=== PATIENT | male | born 1945 | race Caucasian/White ===

== ENCOUNTER 2020-05-19 08:21 | Observation (INO) | payer MEDICARE, OTHER, SELFPAY ==
[2020-05-19] VITALS (8 sets, daily range): BP systolic 104–143; BP diastolic 46–80; PULSE 76–98; RESP 14–20; TEMP 36.4–36.8; O2SAT 94–100; BMI 27.8
--- NOTE | ~2020-05-19 | CT_ITS ---
EXAMINATION: CT chest abdomen pelvis wo con DATE: 05/19/2020 14:52 INDICATION: Shortness of breath. Severe epigastric pain. Suprapubic pain. TECHNIQUE: Computed tomography (CT) of the chest, abdomen, and pelvis was performed without intraveno us contrast. Automated exposure control and iterative reconstruction technique were employed. The dos e-length product was 1092.34 mGy-cm. COMPARISON: CT studies dated 01/23/2014 and 02/05/2016 FINDINGS: CHEST CT: Calcified nodules in the right upper lobe and calcified right hilar lymph nodes consistent with old g ranulomatous disease. There is an 8 mm left upper lobe nodule with peripheral punctate calcification. Mild linear discoid atelectasis/scarring in the bilateral lower lobes. No pneumonia, pulmonary edema , pleural effusion or pneumothorax. Heart size is normal. Atherosclerotic coronary artery calcific ca lcification. No pericardial effusion. Fusiform ascending thoracic aortic aneurysm which measures up t o 4.8 cm in maximal diameter. No pathologically enlarged thoracic lymphadenopathy. Moderate thoracic spondylosis with bridging osteophytes at multiple levels consistent with diffuse idiopathic skeletal hyperostosis (DISH). ABDOMEN/PELVIS CT: Small calcified gallstone at the neck of the otherwise normal-appearing gallbladder. Liver and pancre as are normal. Unchanged small bilateral low-attenuation adrenal adenomas. A few scattered splenic ca lcifications consistent with old granulomatous disease. Likely age-related mild bilateral renal atrop hy. Bilateral renal cysts the largest on the left measuring 5.2 cm. A few atherosclerotic calcific a cyst at the bilateral renal mauro. No urolithiasis or hydronephrosis. Normal appendix. Moderate to lar ge amount of stool scattered throughout the colon. No abnormal bowel wall thickening or obstruction. Bladder appears normal although portions of the bladder as well as the prostate are obscured by dense metallic streak artifact from bilateral total hip arthroplasties. There is calcified atherosclerosis of the aorta and many of the other arteries. No free intraperitoneal gas or fluid. No pathologically enlarged abdominal or pelvic lymphadenopathy. Severe lumbar spondylosis. Interval decrease in size o f a multilobulated fluid collection tracking within the left iliopsoas muscle likely either a ganglio n cyst or iliopsoas bursa which results in a large chronic erosion along the anterior margin of the l eft acetabulum. IMPRESSION: 1. No acute intrathoracic, abdominal or pelvic process. 2. 8 mm indeterminate left upper lobe nodule. Recommend 6-12 month follow-up low-dose noncontrast sandra st CT. 3. 4.8 cm ascending thoracic aortic aneurysm. 4. Cholelithiasis. Reviewed, dictated and finalized at location A. IMPRESSION: 1. No acute intrathoracic, abdominal or pelvic process. 2. 8 mm indeterminate left upper lobe nodule. Recommend 6-12 month follow-up lo w-dose noncontrast chest CT. 3. 4.8 cm ascending thoracic aortic aneurysm. 4. Cholelithiasis.
--- NOTE | ~2020-05-19 | XR_ITS ---
EXAMINATION: XR chest 1V portable INDICATION: Chest pain TECHNIQUE: Portable AP chest at 0858 hours COMPARISON: 05/07/2018 FINDINGS: The lungs are free of acute opacities. There is no pleural effusion or pneumothorax. A calc ified nodule of the right upper lobe is consistent with old granulomatous disease. The cardiomediasti nal silhouette is normal. IMPRESSION: 1. No acute cardiopulmonary abnormality. Reviewed, dictated and finalized at location A.
--- NOTE | 2020-05-19 08:27 | ECG_ITS ---
Measurements Intervals [place] Rate: 100 P: 47 HI: 177 QRS: -44 QRSD: 86 T: 27 QT: 343 QTc: 444 Interpretive Statements SINUS TACHYCARDIA VENTRICULAR PREMATURE COMPLEXES DELAYED PRECORDIAL R/S TRANSITION LOW QRS VOLTAGE IN LIMB LEADS BASELINE ARTIFACT- I, II, III, AVR, AVL, AVF, V2 ABNORMAL ECG Electronically Signed On 05-21-2020 7:04:32 CDT by Geoffrey Sol D.O.
--- NOTE | 2020-05-19 08:39 | ED.CHESTPAIN ---
HPI - Chest Pain General Chief Complaint: Chest Pain Stated Complaint: Chest pain sob Source: patient Mode of arrival: ambulatory History of Present Illness HPI narrative: Sohail (goes by Fabiana) is a 74M with a PMH of COPD, HTN, OA and presented to the ED with CP. He has had CP on and off for months. He was feeding his goat this morning when he started to have squeezing chest pain that was worse with activity. It is accompanied by nausea, cold sweats, lightheadedness and SOB. No syncope or vomiting. He also reports some abdominal pain. Related Data Home Medications Medication Instructions Recorded Confirmed albuterol sulfate 2.5 mg CONTINUOUS NEBULIZATION PRN 05/19/20 05/19/20 PRN amitriptyline 25 mg PO DAILY 05/19/20 05/19/20 cyclobenzaprine 10 mg PO BID 05/19/20 05/19/20 hydrocodone-acetaminophen 1 tablet PO PRN PRN 05/19/20 05/19/20 lisinopril-hydrochlorothiazide 1 tablet PO DAILY 05/19/20 05/19/20 montelukast 10 mg PO DAILY 05/19/20 05/19/20 omeprazole 20 mg PO DAILY 05/19/20 05/19/20 Allergies Allergy/AdvReac Type Severity Reaction Status Date / Time Iodine and Iodide Containing Allergy Unknown Verified 05/19/20 09:25 Produc Review of Systems Constitutional: Constitutional: Reports chills and Reports fatigue Eyes: Eyes: Reports no additional eye complaints ENT: Reports system reviewed and no additional complaints, except as documented Cardiovascular: Cardiovascular: Reports as per HPI Respiratory: Respiratory: Reports as per HPI Gastrointestinal: Gastrointestinal: Reports abdominal pain, Denies constipation, Denies diarrhea, Reports nausea and Denies vomiting Genitourinary: Genitourinary: Reports no additional male genitourinary complaints Musculoskeletal: Musculoskeletal: Reports arthralgias Integumentary/Breasts: Skin/Breast: Reports system reviewed and no additional complaints, except as docu Neurologic: Reports system reviewed and no additional complaints, except as documented Psychiatric: Psychiatric: Reports no additional psychiatric complaints Endocrine: Endocrine: Reports no additional endocrine complaints Hematologic/Lymphatic: Hematologic/Lymphatic: Reports no additional hematologic/lymphatic complaints Allergic/Immunologic: Allergic/Immunologic: Reports no additional allergic/immunologic complaints Exam Const: General: alert Orientation/consciousness: patient oriented x3 Limitations: No altered mental status Other: Mild distress HENMT: Head: normal to inspection Other: moist mucous membranes Eyes: Conjunctivae: conjunctivae normal Pupils: Equal, round and reactive pupils present Neck: Neck: normal visual inspection Chest: Chest palpation & inspection: normal inspection of the chest Resp: Other: mildly increased WOB but still speaks in complete sentences. Cardio: Rate: tachycardic Rhythm: regular rhythm Heart sounds: no murmurs GI: Auscultation: normal bowel sounds Other: No TTP Skin: Other: Skin was wet an clammy Neuro: General: patient oriented x3 and moves all extremities Extrem: General: normal to inspection Psych: Mental Status: mental status grossly normal Course Course Emergency Course: Fabiana was seen and evaluated. Ordered labs, CXR and EKG. He was given aspirin and nitroglycerin. EKG showed sinus tachycardia with a rate of 100, slight LAD, and no ST elevation/depression EXAMINATION: XR chest 1V portable INDICATION: Chest pain TECHNIQUE: Portable AP chest at 0858 hours COMPARISON: 05/07/2018 FINDINGS: The lungs are free of acute opacities. There is no pleural effusion or pneumothorax. A calcified nodule of the right upper lobe is consistent with old granulomatous disease. The cardiomediastinal silhouette is normal. IMPRESSION: 1. No acute cardiopulmonary abnormality. While his initial troponin and EKG were unremarkable he is still at high risk of ACS so will admit to observation and trend troponins/ekgs. Vital Signs Vital signs: V
[2020-05-19] MEDS: ASPIRIN 81 MG CHEWABLE TABLET 324 MG PO (08:44)
[2020-05-19] MEDS: NITROGLYCERIN SL 0.4 MG TABLET SUBLINGUAL (08:46)
[2020-05-19 08:51] LABS: Basophils Absolute Auto 0.05 K/mm3 (0.00-0.10); Basophils Percent Auto 0.5 % (0.0-1.0); Eosinophils Absolute Auto 0.18 K/mm3 (0.02-0.50); Eosinophils Percent Auto 1.7 % (1.0-6.0); Hematocrit 43.6 % (37.0-46.0); Immature Granulocyte Absolute 0.07 K/mm3 (0.00-0.00); Immature Granulocyte Percent A 0.6 % (0.0-0.0); Lymphocytes Absolute Auto 1.83 K/mm3 (1.10-4.50); Lymphocytes Percent Auto 16.9 % (18.0-42.0); Mean Corpuscular HGB Conc 32.1 g/dL (32.0-36.0); Mean Corpuscular Hemoglobin 27.3 pg (27.0-31.0); Mean Corpuscular Volume 85.2 fL (78.0-102.0); Monocytes Absolute Auto 0.78 K/mm3 (0.10-0.90); Monocytes Percent Auto 7.2 % (2.0-11.0); Neutrophils Absolute Auto 7.9 K/mm3 (1.7-7.2); Neutrophils Percent Auto 73.1 % (50.0-70.0); Platelet Count Result 336 K/mm3 (150-420); Red Blood Count 5.12 M/mm3 (4.70-6.10); Red Cell Distribution Width 13.3 % (11.6-14.4)
[2020-05-19 08:58] LABS: White Blood Count 9.7 K/mm3 (4.8-10.8)
[2020-05-19 09:15] LABS: Alanine Aminotransferase 14 U/L (16-63); Albumin Level 3.9 g/dL (3.4-5.0); Alkaline Phosphatase 74 U/L (46-116); Anion Gap 10 mmol/L (8-16); Aspartate Amino Transferase 18 U/L (15-37); Bilirubin,Total 0.7 mg/dL (0.00-1.00); Blood Urea Nitrogen 25 mg/dL (7-18); Calcium 9.7 mg/dL (8.5-10.1); Carbon Dioxide 27 mmol/L (21-32); Chloride 98 mmol/L (98-108); Estimated CRCL calculation 38 ml/min; Estimated Glomerular Filt Rate 42; Glucose 100 mg/dL (70-99); Osmolality Calculated 284 mOsm/kg (285-295); Potassium 4.4 mmol/L (3.5-5.1); Sodium 135 mmol/L (136-145); Total Protein 8.1 g/dL (6.4-8.2)
[2020-05-19 09:16] LABS: BNP 22.7 pg/mL (0-100); Troponin I < 0.02 ng/mL (0.00-0.056)
[2020-05-19 09:18] LABS: Prothrombin Time 10.4 Seconds (9.64-11.0)
--- NOTE | 2020-05-19 09:34 | PC.NURSE ---
ERP spoke to pt. and , decision and POC to admit for 23 hr. obs.
--- NOTE | 2020-05-19 10:20 | PC.NURSE ---
PT TO ROOM 208B PER WC WITH SPOUSE. A&OX3. VSS. PT STATES HE HAS HAD A DULL MIDSTERNAL PRESSURE WORSENING THIS AM AFTER FEEDING HIS ANIMALS ON THE FARM THIS AM. PT COMPLAINS OF GENERALIZED BODY ACHES THIS AM BUT DENIES CP OR SOB AT THIS TIME. ORIENTED TO ROOM. CALL M[place]ACA IN REACH. REMINDED TO CALL WITH NEEDS.
--- NOTE | 2020-05-19 11:22 | PM.IMHP ---
H&P: HPI History of Present Illness Date/Time: 05/19/20 11:22 <Carolyn Mercado, CABLE ARMORER - Last Filed: 05/19/20 13:06> Chief complaint: Chest pain sob <Carolyn Mercado, CABLE ARMORER - Last Filed: 05/19/20 13:06> Narrative: Sohail Lake is a 74 year old male Admitted today due to chest pain and shortness of breath at home. He described it as a squeezing chest pressure located substernal epigastric region that occurred when he was outside feeding his goat this morning. It seemed to get worse with more activity. He denies any history of bleeding ulcers or peptic ulcer disease. He denies ever vomiting blood. He did acknowledge that his alcoholism was significant any had a lot of bleeding rectally in the past when he was an active drinker, but none noted since quitting. He denies having a colonoscopy and states he never well, states that he is too afraid of what they will find. He denies seeing blood in his stools at this time. He denies having any history of a heart attack and does not currently see a chief green officer. He has been complaining of this sort of chest pain and cold sweats on and off for 2 months. He does feel like it was anxiety and has discussed it with other providers. When he presented to the ED this morning he was diaphoretic, short of breath, lightheaded, and nauseated. He was given aspirin and nitroglycerin in the ED. Per the ED physician Dr. Payton, his EKG in the ED showed sinus tachycardia with a rate of 100, slight LAD, and no ST elevation/depression. CXR showed: lungs are free of acute opacities. There is no pleural effusion or pneumothorax. A calcified nodule of the right upper lobe is consistent with old granulomatous disease. The cardiomediastinal silhouette is normal. IMPRESSION: 1. No acute cardiopulmonary abnormality. Troponin I < 0.02 in ED. No syncope or vomiting. He did state that he got in an argument with his this morning. He stated that he had been yelling at her prior to this chest pressure. and that he was feeling bad about it afterwards. So he was thinking the chest pressure and pain was from this would fight with his and/or anxiety related. He goes by Fabiana to his . He reports some abdominal pain. He informed me that he has suprapubic pain significantly when he coughs. He also complained of having difficulty with urination and pain with urination. He states that sometimes he has urinary urgency, then when he gets to the bathroom he can't go with urinary hesitation. He also acknowledged that his abdomen felt a bit distended, not hard or firm, soft with positive bowel sounds throughout and no pain to palpation. He denies currently being constipated and states that he make sure he has a bowel movement every day or every other day. He stated that he understood the complications of taking narcotics and constipation; and stated that he would use an enema if he had a day without a bowel movement. He has a history of cigarette smoking but quit more than 10 or 15 years ago, he has a history of alcoholism but quit that many years ago as well, COPD, HTN, OA with significant and severe pain to his left knee and left hip. He does continue to use of vapor pen, but adamantly denies having any nicotine in the vaping solutions that he buys. He has had history of left hip and right hip replacement, but continues to have significant pain to his left hip. He stated that he takes Vicodin every day for 5 times a day to deal with the left knee and bilateral hip pain. He states that he is also tried taking meloxicam but did not do well on that. Once he gets his left leg comfortable, he then complained of the leg falling asleep with numbness and tingling and pain; although he denied any history of neuropathy and stated that he did not know what that was. He denies having ever tried Gabapentin or Neurontin for his leg or hip pain, numbness and tingling. Differential diagnoses include: ACS, Vapor related pneumonia, PE,
[2020-05-19 11:51] LABS: CRP 2.4 mg/dL (0.0-0.9)
[2020-05-19] MEDS: PANTOPRAZOLE 40 MG TABLET PO (12:01)
[2020-05-19 12:04] LABS: D Dimer 0.91 mg/L (0.19-0.50)
[2020-05-19 12:25] LABS: Magnesium 2.2 mg/dL (1.8-2.4); Phosphorus 3.2 mg/dL (2.6-4.7)
[2020-05-19 12:51] LABS: Erythrocyte Sedimentation Rate 28 mm/hr (0-20)
[2020-05-19] MEDS: ACETAMINOPHEN 500 MG TABLET 1000 MG PO ×2 (13:36→23:52)
--- NOTE | 2020-05-19 13:47 | PC.NURSE ---
pt has chronic pain in hips, dull ache mid sternum reported, sched tylenol given, pt resting in bed, aware of need for urine/stool sample
[2020-05-19 14:17] LABS: Creatine Kinase 43 U/L (39-308)
[2020-05-19 14:23] LABS: Troponin I < 0.02 ng/mL (0.00-0.056)
--- NOTE | 2020-05-19 15:31 | PC.NURSE ---
dr aguilar montanez about nightly melatonin, dr to add melatonin and trazadone for hs to help with insomnia
[2020-05-19] MEDS: CYCLOBENZAPRINE HCL 10 MG TABLET PO (16:49)
--- NOTE | 2020-05-19 17:44 | PCDIET ---
pt denies any chest pain at this time, no other complaints, call light in reach
[2020-05-19 18:33] LABS: Add Urine Microscopic? YES; Appearance Urine Clear (Clear); Bilirubin Urine Negative (Negative); Blood Urine Negative (Negative); Color Urine Yellow (Yellow); Glucose Urine UA Negative (Negative); Ketones Urine 1+ (Negative); Leukocyte Esterase Ur Negative (Negative); Nitrate Urine Negative (Negative); Protein Urine Negative (Negative); Specific Grav Ur 1.015 (1.010-1.020); Urobilinogen Urine 0.2 mg/dL (0.2-1.0)
[2020-05-19 18:49] LABS: Occult Blood Negative (Negative)
[2020-05-19 18:55] LABS: Bacteria Urine None seen /hpf; RBC Urine None seen /hpf (0-2); Squamous Epithelial Cell Urine None seen /hpf (Few); WBC Urine None seen /hpf (0-3)
[2020-05-19 18:56] LABS: Mucus Urine None seen /lpf
[2020-05-19 20:23] LABS: Troponin I < 0.02 ng/mL (0.00-0.056)
[2020-05-19] MEDS: traZODone HCL 50 MG TABLET PO (21:18)
[2020-05-19] MEDS: MELATONIN 5 MG TABLET PO (21:18)
[2020-05-20] VITALS: BP 97/47; PULSE 66; PULSE 80; RESP 12; TEMP 36.4; O2SAT 96
[2020-05-20 03:58] VITALS: BP 107/60; PULSE 70; PULSE 78; RESP 12; TEMP 36.8; O2SAT 95
[2020-05-20 06:06] LABS: Basophils Absolute Auto 0.07 K/mm3 (0.00-0.10); Basophils Percent Auto 0.7 % (0.0-1.0); Eosinophils Absolute Auto 0.33 K/mm3 (0.02-0.50); Eosinophils Percent Auto 3.4 % (1.0-6.0); Hematocrit 38.8 % (37.0-46.0); Hemoglobin 12.8 g/dL (12.4-15.3); Immature Granulocyte Absolute 0.04 K/mm3 (0.00-0.00); Immature Granulocyte Percent A 0.4 % (0.0-0.0); Lymphocytes Absolute Auto 2.26 K/mm3 (1.10-4.50); Lymphocytes Percent Auto 23.3 % (18.0-42.0); Mean Corpuscular Hemoglobin 27.5 pg (27.0-31.0); Mean Corpuscular Volume 83.3 fL (78.0-102.0); Mean Platelet Volume 8.7 fl (8.7-11.0); Monocytes Absolute Auto 0.84 K/mm3 (0.10-0.90); Monocytes Percent Auto 8.6 % (2.0-11.0); Neutrophils Absolute Auto 6.2 K/mm3 (1.7-7.2); Neutrophils Percent Auto 63.6 % (50.0-70.0); Platelet Count Result 298 K/mm3 (150-420); Red Blood Count 4.66 M/mm3 (4.70-6.10); Red Cell Distribution Width 13.2 % (11.6-14.4); White Blood Count 9.7 K/mm3 (4.8-10.8)
[2020-05-20 06:22] LABS: Alanine Aminotransferase 12 U/L (16-63); Albumin Level 3.5 g/dL (3.4-5.0); Alkaline Phosphatase 63 U/L (46-116); Anion Gap 8 mmol/L (8-16); Aspartate Amino Transferase 16 U/L (15-37); Bilirubin,Total 0.6 mg/dL (0.00-1.00); Blood Urea Nitrogen 25 mg/dL (7-18); Carbon Dioxide 28 mmol/L (21-32); Chloride 100 mmol/L (98-108); Estimated CRCL calculation 42 ml/min; Estimated Glomerular Filt Rate 48; Glucose 92 mg/dL (70-99); Osmolality Calculated 286 mOsm/kg (285-295); Potassium 4.3 mmol/L (3.5-5.1); Sodium 136 mmol/L (136-145); Total Protein 7.2 g/dL (6.4-8.2)
[2020-05-20 06:30] LABS: Creatine Kinase 52 U/L (39-308)
[2020-05-20 06:31] LABS: Troponin I < 0.02 ng/mL (0.00-0.056)
--- NOTE | 2020-05-20 07:45 | PC.NURSE ---
MANAGER TRANSPLANT VISITS WITH PATIENT FOR 25 MINUTES DISCUSSING DISCHARGE PLAN OF CARE.
[2020-05-20 08:00] VITALS: BP 125/74; PULSE 99; RESP 20; TEMP 36.4; O2SAT 97
--- NOTE | 2020-05-20 08:25 | PM.DS ---
DS: Admitting Diagnosis Admitting Diagnosis Admitting Diagnosis: Chest pain sob DS: Discharge Diagnosis Discharge Diagnosis (1) Osteoarthritis: Code(s): M19.90 - Unspecified osteoarthritis, unspecified site Status: Acute Assessment and Plan: CHRONIC. PT evaluation for tolerance to activity pain control out of bed with meals ice and Angel wrap as needed for comfort continue the daily amitriptyline and b.i.d. cyclobenzaprine and p.r.n. [place] added lidocaine patches x3 may benefit from steroid injections and/or Neurontin as well as follow-up with a supervisor painting shipyard and Orthopedic Surgeon. (2) Chronic suprapubic pain: Code(s): R10.2 - Pelvic and perineal pain; G89.29 - Other chronic pain Status: Acute Assessment and Plan: IMPROVED. Differential diagnoses include UTI, prostatitis, hernia, diverticulosis. Patient stated the pain and urgency comes with deep coughing and palpation of the suprapubic area. patient implied through his history that the primary care provider had worked this up prior to this admission his urinalysis in March was clear his PSA level in March was also normal UA on 05/19 without s/s of UTI Urine culture on 05/[address] abd pelvis showed no acute urinary concerns. patient stated he was taking cranberry extract supplements at home, will continue ordered UA and urine culture again today to rule out UTI with his persistent pain and urinary s/s with his history of smoking and alcoholism he is at risk for urinary bladder cancer he may benefit from Flomax, Abdominal US, and should follow-up with his primary care provider and/or Urologist after this discharge, he may need a cystoscopy (3) Narcotic dependency, continuous: Code(s): F11.20 - Opioid dependence, uncomplicated Status: Acute Assessment and Plan: CHRONIC. increase nonnarcotic measures to control pain and anxiety patient will need to discuss starting Neurontin or gabapentin with his primary care provider after discharge continue amitriptyline ordered Angel wrap and ice packs as needed for comfort ordered scheduled Tylenol doses for better pain control as well as added lidocaine patches need to follow-up with primary care provider and/or supervisor painting shipyard and/or orthopedic specialty surgeon after this hospitalization (4) Chest pain: Code(s): R07.9 - Chest pain, unspecified Status: Acute Assessment and Plan: RESOLVED. Differential diagnoses include: ACS, Vapor related pneumonia, PE, OR, PUD, hiatal hernia, narcotic related gastroparesis, COPD/Asthma) exacerbation, Anxiety attack. Checking serial troponins including to full cardiac panels - all WNL. no elevations. continuous cardiac telemetry monitoring - no ectopy. EKG at admission reviewed chest x-ray and found no acute issues at this time checking D-dimer: mildly elevated unable to complete CT PE protocol as patient is SEVERELY allergic to IV contrast, unable to complete VQ Scan due to hospital restrictions at this time, discussed D-dimer level and patient s/s with Dr. Payton, ordered CT chest abdomen pelvis without contrast CT chest abdomen pelvis showed . No acute intrathoracic, abdominal or pelvic process. 8 mm indeterminate left upper lobe nodule. Recommend 6-12 month follow-up low-dose noncontrast chest CT. 4.8 cm ascending thoracic aortic aneurysm. Cholelithiasis. (discussed results with patient and he did then recall that [facility] past, and thought that it worsened after a chemical stress test). Patient agreed to follow-up with [facility]. He stated he used to see a advertising sales manager that would come down to [place]. He stated he would start doing that again or see them at the [facility]. Since today is Thursday, I have provided the patient with [facility] phone number as well as the advertising sales manager names and satellit
--- NOTE | 2020-05-20 08:45 | PC.NURSE ---
PT UP AT EDGE OF BED, DRESSED AND READY TO GO. IV REMOVED, TELE REMOVED. WAITING FOR SPOUSE. REMINDED TO CALL WITH NEEDS.
[2020-05-20] MEDS: MONTELUKAST SODIUM 10 MG TABLET PO (08:49)
[2020-05-20] MEDS: AMITRIPTYLINE HCL 25 MG TABLET PO (08:49)
[2020-05-20] MEDS: CYCLOBENZAPRINE HCL 10 MG TABLET PO (08:49)
[2020-05-20] MEDS: PANTOPRAZOLE 40 MG TABLET PO (08:49)
[2020-05-20] MEDS: hydroCHLOROthiazide 12.5 MG CAPSULE PO (08:49)
[2020-05-20] MEDS: LIDOCAINE 5% PATCH 3 PATCH TRANSDERM (08:50)
[2020-05-20] MEDS: guaiFENesin 12 HR 600 MG TABCR 1200 MG PO (08:50)
[2020-05-20] MEDS: ENOXAPARIN 40 MG/0.4 ML SYRINGE SUB-Q (08:50)
[2020-05-20] MEDS: lisinopriL 20 MG TABLET PO (08:51)
--- NOTE | 2020-05-20 10:30 | PC.NURSE ---
PT REMAINS UP AT EDGE OF BED WAITING FOR SPOUSE. HAS NO COMPLAINTS. REMINDED TO CALL WITH NEEDS.
== END 2020-05-20 07:56 | disposition home or self-care (01) ==
LOC: CHSED 09:18 → CHS2ND 09:46
PROVIDERS: Nurse Practitioner; Admitting Provider Family Medicine; Emergency Provider Family Medicine; PCP Internal Medicine; Visit Provider Family Medicine
DX: R07.9 Chest pain, unspecified (principal); R06.02 Shortness of breath; J44.9 Chronic obstructive pulmonary disease, unspecified; I10 Essential (primary) hypertension; R10.2 Pelvic and perineal pain; G89.29 Other chronic pain; K80.20 Calculus of gallbladder without cholecystitis without obstruction; M19.90 Unspecified osteoarthritis, unspecified site; F11.20 Opioid dependence, uncomplicated; F10.21 Alcohol dependence, in remission; Z96.643 Presence of artificial hip joint, bilateral; Z87.891 Personal history of nicotine dependence
CPT/HCPCS: 36415; 71045; 71250; 74176; 80053; 81001; 82550; 82553; 83735; 83880; 84100; 84484; 85025; 85380; 85610; 85652; 86140; 87086; 87088; 93005; 96372; 97161; 99284; 99285; A9270; G0378; J1650

== ENCOUNTER 2024-02-12 22:18 | Emergency (ER) | payer MEDICARE, SELFPAY ==
[2024-02-12] VITALS (7 sets, daily range): BP systolic 141–148; BP diastolic 65–69; PULSE 84–96; RESP 11–27; TEMP 36.4; O2SAT 98–100
--- NOTE | ~2024-02-12 | XR_ITS ---
EXAMINATION: XR chest 1V portable DATE: 02/12/2024 22:52 INDICATION: Shortness of breath. TECHNIQUE: A single frontal view of the chest was obtained. COMPARISON: Chest single view 05/19/2020, chest CT 11/22/2021 FINDINGS: A calcified right lung nodule is consistent with old granulomatous disease. There is mild a telectasis in the lower lung zones. No pleural effusion or pneumothorax. The heart size is normal. IMPRESSION: 1. Mild atelectasis in the lower lung zones. Reviewed, dictated and finalized at location E.
--- NOTE | 2024-02-12 22:26 | ED.SOB ---
HPI - SOB/Dyspnea General Chief Complaint: Shortness of Breath/Dyspnea Stated Complaint: SOB Time Seen by Provider: 02/12/24 22:26 Source: patient and family Mode of arrival: ambulatory Limitations: no limitations History of Present Illness HPI Narrative: 78-year-old male with a history of alcoholism, opiate dependence, ex-smoker, Anxiety presents to the ER with -- shortness of breath. The patient was ingesting his Vicodin when he aspirated. Subsequently he had violent coughing spells along with shortness of breath. This happened around 5 hours ago. The patient is saturating 99% on room air with a respiratory rate of 26. -- Patient had a burning sensation behind his sternum. no chest pain no nausea/ vomiting Patient has bilateral hip replacements. His right prosthetic hip got dislocated Three months ago and subsequently replaced. He has ongoing right hip pain. MD elicited complaint: shortness of breath and cough Pertinent past history: COPD Onset (ago): hour(s) ( 5 hours ago) Timing: constant Severity: moderate Exacerbating factors: nothing Relieving factors: nothing Known history of: COPD Associated symptoms: denies other symptoms Treatment prior to arrival: none Related Data Home Medications Medication Instructions Recorded Confirmed amitriptyline 25 mg tablet 25 mg PO DAILY 05/19/20 02/12/24 montelukast 10 mg tablet 10 mg PO DAILY 05/19/20 02/12/24 omeprazole 20 mg capsule,delayed 20 mg PO DAILY 05/19/20 02/12/24 release Allergies Allergy/AdvReac Type Severity Reaction Status Date / Time Iodine and Iodide Containing Allergy Unknown Verified 05/19/20 09:25 Produc Review of Systems Review of Systems: All systems reviewed & are unremarkable except as noted in HPI and below Constitutional: Constitutional: Reports as per HPI and Reports no additional constitutional complaints Eyes: Eyes: Reports as per HPI and Reports no additional eye complaints ENT: Reports system reviewed and no additional complaints, except as documented and Reports as per HPI Cardiovascular: Cardiovascular: Reports as per HPI and Reports no additional cardiovascular complaints Respiratory: Respiratory: Reports as per HPI, Reports no additional respiratory complaints, Reports cough and Reports dyspnea Gastrointestinal: Gastrointestinal: Reports as per HPI and Reports no additional gastrointestinal complaints Genitourinary: Genitourinary: Reports no additional male genitourinary complaints and Reports as per HPI Musculoskeletal: Musculoskeletal: Reports no additional musculoskeletal complaints and Reports as per HPI Integumentary/Breasts: Skin/Breast: Reports system reviewed and no additional complaints, except as docu and Reports as per HPI Neurologic: Reports system reviewed and no additional complaints, except as documented and Reports as per HPI Psychiatric: Psychiatric: Reports no additional psychiatric complaints, Reports as per HPI and Reports anxiety Endocrine: Endocrine: Reports no additional endocrine complaints and Reports as per HPI Hematologic/Lymphatic: Hematologic/Lymphatic: Reports no additional hematologic/lymphatic complaints and Reports as per HPI Allergic/Immunologic: Allergic/Immunologic: Reports no additional allergic/immunologic complaints and Reports as per HPI PMF Past Medical History Medical History (Updated 02/13/24 @ 02:04 by Ramin Barrios MD) Alcoholism Cigarette smoker COPD (chronic obstructive pulmonary disease) Strangulated hernia of abdominal wall Surgical History Surgical History History of hernia repair Family History Family History Father Acute myocardial infarction Chronic obstructive pulmonary disease Mother Diabetes mellitus Social History Social History Smoking status: Former smoker Tob
--- NOTE | 2024-02-12 22:29 | PC.NURSE ---
patient wob labored. states he needs oxygen, will place on 1 liter nc. informed patient that his spo2 reading is at 100%. encouraged patient to slow breathing
--- NOTE | 2024-02-12 22:35 | PC.NURSE ---
patient states i feel like i am going to pass out . encouraged patient to slow breathing and to sit back on stretcher.
--- NOTE | 2024-02-12 22:37 | PC.NURSE ---
Dr Barrios at the bedside
--- NOTE | 2024-02-12 22:40 | ECG_ITS ---
SEE SCANNED COPY FOR CONFIRMED REPORT MTDD
--- NOTE | 2024-02-12 22:44 | PC.NURSE ---
using the urinal
--- NOTE | 2024-02-12 22:45 | PC.NURSE ---
notified cardiopulmonary that ekg was needed.
--- NOTE | 2024-02-12 22:50 | PC.NURSE ---
cxr completed, ekg being completed at this time
[2024-02-12 23:05] LABS: Basophils Absolute Auto 0.05 K/mm3 (0.00-0.10); Basophils Percent Auto 0.4 % (0.0-1.0); Eosinophils Absolute Auto 0.04 K/mm3 (0.02-0.50); Eosinophils Percent Auto 0.3 % (1.0-6.0); Hematocrit 36.8 % (37.0-46.0); Hemoglobin 12.2 g/dL (12.4-15.3); Immature Granulocyte Absolute 0.08 K/mm3 (0.00-0.00); Immature Granulocyte Percent A 0.7 % (0.0-0.0); Lymphocytes Absolute Auto 1.58 K/mm3 (1.10-4.50); Lymphocytes Percent Auto 13.6 % (18.0-42.0); Mean Corpuscular HGB Conc 33.2 g/dL (32-36); Mean Corpuscular Hemoglobin 29.3 pg (27.0-31.0); Mean Corpuscular Volume 88.5 fL (78.0-102.0); Mean Platelet Volume 8.5 fl (8.7-11.0); Monocytes Absolute Auto 0.83 K/mm3 (0.10-0.90); Monocytes Percent Auto 7.2 % (2.0-11.0); Neutrophils Absolute Auto 9.02 K/mm3 (1.70-7.20); Neutrophils Percent Auto 77.8 % (50.0-70.0); Platelet Count Result 290 K/mm3 (150-420); Red Blood Count 4.16 M/mm3 (4.70-6.10); Red Cell Distribution Width 13.3 % (11.6-14.4); White Blood Count 11.6 K/mm3 (4.8-10.8)
[2024-02-12 23:10] LABS: Appearance Urine Clear (Clear); Bilirubin Urine Negative (Negative); Blood Urine Negative (Negative); Color Urine Light Yellow (Yellow); Glucose Urine UA Negative (Negative); Ketones Urine Negative (Negative); Leukocyte Esterase Ur Negative LEU/UL (Negative); Nitrate Urine Negative (Negative); Protein Urine Negative (Negative)
[2024-02-12 23:11] LABS: Add Urine Microscopic? NO
--- NOTE | 2024-02-12 23:11 | PC.NURSE ---
patient talking with family member while resting on stretcher. currently, wob is non labored. call light in reach
--- NOTE | 2024-02-12 23:28 | PC.NURSE ---
daughter came out to the desk stating he is still complaining of chest pain . ER provider notified
[2024-02-12] MEDS: LORazepam (*CRX) 0.5 MG TABLET PO (23:33)
--- NOTE | 2024-02-12 23:35 | PC.NURSE ---
patient is anxious in the room. im worried my hip is gonna pop out. i don't want to move and lay back on the stretcher
--- NOTE | 2024-02-12 23:44 | PC.NURSE ---
patient doesnt want staff to get blood pressure on him. daughter at the bedside
--- NOTE | 2024-02-13 00:05 | PC.NURSE ---
patient sitting up on the side of stretcher. family member in front of him. patient states i am ready to go home . informed patient that blood work was not completed as of this time. patient verbalized understanding
--- NOTE | 2024-02-13 00:09 | PC.NURSE ---
patient reports that his chest pain is starting to go away
--- NOTE | 2024-02-13 00:54 | PC.NURSE ---
patient is sitting up on stretcher. lab work pending. denies any needs at this time. family member at the bedside.
--- NOTE | 2024-02-13 01:12 | PC.NURSE ---
patient daughter at the desk. wanting to know how much longer before blood work will be back. has asked about going home. informed daughter that blood work will determine next steps in care. daughter was informed about ama form and risks and benefits regarding going home without final lab work. daughter went back to room to discuss with patient
--- NOTE | 2024-02-13 01:20 | PC.NURSE ---
daughter and patient were notified that blood work had to be taken to [facility] for processing. patient is frustrated and wants to go home but is currently willing to stay and wait for results.
[2024-02-13 01:43] LABS: Alanine Aminotransferase 12 U/L (6-50); Albumin Level 4.3 g/dL (3.5-5.1); Alkaline Phosphatase 90 U/L (38-126); Anion Gap 8 mmol/L (4-12); Aspartate Amino Transferase 35 U/L (17-59); Bilirubin,Total 0.5 mg/dL (0.2-1.3); Blood Urea Nitrogen 14 mg/dL (9-20); Calcium 9.2 mg/dL (8.4-10.2); Carbon Dioxide 24 mmol/L (22-30); Chloride 100 mmol/L (98-107); Estimated CRCL calculation 56 ml/min; Estimated Glomerular Filt Rate > 60; Glucose 138 mg/dL (65-110); Osmolality Calculated 276 mOsm/kg (285-295); Sodium 132 mmol/L (137-145)
[2024-02-13 01:44] LABS: Lactic Acid Reflex 1.7 mmol/L (0.7-2.0)
[2024-02-13 01:55] LABS: NT Pro B Type Natriuretic Pept 223 pg/mL (19.9-100); Troponin I < 0.012 ng/mL (0.000-0.034)
[2024-02-13] MEDS: AMOXICILLIN/CLAVULANATE K 875-125 MG TAB 1 TABLET PO (02:15)
[2024-02-13 02:20] VITALS: BP 141/71; PULSE 85; RESP 20; O2SAT 95
== END 2024-02-13 02:20 | disposition home or self-care (01) ==
PROVIDERS: Emergency Provider Internal Medicine Critical Care Medicine; PCP Internal Medicine
DX: T17.908A Unspecified foreign body in respiratory tract, part unspecified causing other injury, initial encounter (principal); R06.02 Shortness of breath; R07.9 Chest pain, unspecified; W44.9XXA Unspecified foreign body entering into or through a natural orifice, initial encounter; J44.9 Chronic obstructive pulmonary disease, unspecified; Z96.643 Presence of artificial hip joint, bilateral; Z87.891 Personal history of nicotine dependence; F10.21 Alcohol dependence, in remission; Z79.51 Long term (current) use of inhaled steroids
CPT/HCPCS: 36415; 71045; 80053; 81003; 83605; 83880; 84484; 85025; 93005; 99284; A9270

== ENCOUNTER 2024-07-25 20:42 | Observation (INO) | payer MEDICARE, SELFPAY ==
[2024-07-25] VITALS (14 sets, daily range): BP systolic 97–128; BP diastolic 56–97; PULSE 84–98; RESP 20; TEMP 36.9; O2SAT 93–98; BMI 23.6
--- NOTE | ~2024-07-25 | CT_ITS ---
EXAMINATION: CT shoulder RT wo con DATE: 07/26/2024 12:19 INDICATION: Right shoulder pain and swelling. TECHNIQUE: Computed tomography (CT) of the right shoulder was performed without intravenous contrast. Automated exposure control and iterative reconstruction technique were employed. The dose-length pro duct was 509.73 mGy-cm. COMPARISON: None FINDINGS: There is mild emphysema. A calcified right lung nodule and calcified right hilar lymph node s are consistent with old granulomatous disease. There are airspace opacities in right lower lobe, co nsistent with atelectasis versus pneumonia. There is mild atelectasis in right middle lobe and right upper lobe. There is a comminuted fracture of proximal right humerus including displaced fracture fra gments of the surgical neck and greater tuberosity. The main distal fracture fragment demonstrates on e shaft width anterior displacement, shortening, and severe rotation and angulation. There is mild os teoarthritis of glenohumeral joint and acromioclavicular joint. IMPRESSION: 1. Comminuted three-part fracture of proximal right humerus. 2. Mild polyarticular osteoarthritis. 3. Airspace opacities in right lung lower lobe, consistent with atelectasis versus pneumonia. Reviewed, dictated and finalized at location B. IMPRESSION: 1. Comminuted three-part fracture of proximal right humerus. 2. Mild polyarticular osteoarthritis. 3. Airspace opacities in right lung lower lobe, consistent with atelectasis gustavo neo pneumonia.
--- NOTE | ~2024-07-25 | XR_ITS ---
XR hip LT 2V w AP pelvis Ordering provider: Nicola Mcdaniels MD History: . FALL . Comparison: May 10, 2018 FINDINGS: BONES: No acute fracture or dislocation. HIP JOINT SPACES: Left hip arthroplasty. SACROILIAC JOINT SPACES/LUMBAR SPINE: The sacroiliac joint spaces are normal. Mild degenerative wolf es of the visualized lower lumbar spine. PUBIC SYMPHYSIS: Normal. SOFT TISSUES: Vascular atherosclerotic changes. IMPRESSION: No acute osseous abnormality pelvis and left hip. Left hip arthroplasty. Reviewed, dictated and finalized at location A.
--- NOTE | ~2024-07-25 | CT_ITS ---
EXAMINATION: CT chest abdomen pelvis wo con DATE: 07/27/2024 09:54 INDICATION: Generalized abdominal pain, nausea and leukocytosis. TECHNIQUE: Computed tomography (CT) of the chest, abdomen, and pelvis was performed without intraveno us contrast. Automated exposure control and iterative reconstruction technique were employed. The dos e-length product was 1345.48 mGy-cm. COMPARISON: 05/19/2020 FINDINGS: CHEST CT: 4.3 x 3.1 cm mass with lobular margins and 1 cm satellite nodule at the superior segment of the lingu la suspicious for primary bronchogenic carcinoma. Calcified right upper lobe nodule along with calcif ied right hilar lymph nodes consistent with old granulomatous disease. There is mucous plugging at th e right bronchus intermedius and a few right lower lobar bronchi with consolidation in the posterior basilar right lower lobe consistent with pneumonia. Branching pattern of high attenuation within the region of consolidation suggests possible aspirated barium. Heart size is normal. Atherosclerotic cor onary artery calcific lesions. No pericardial effusion. No significant change in an ascending thoraci c aortic aneurysm measuring up to 4.8 cm in maximal diameter. No pathologically enlarged thoracic lym phadenopathy. Moderate thoracic spondylosis with prominent bridging osteophytes at multiple levels co nsistent with diffuse idiopathic skeletal hyperostosis (DISH). Incompletely visualized comminuted fra cture the proximal right humerus. ABDOMEN/PELVIS CT: Significant distention of the stomach which is filled with gas and fluid without evident obstructing lesion at the gastric pylorus. Calcified gallstone at the dependent aspect of the otherwise normal ga llbladder. Liver and pancreas are normal. Cervical spine Wo splenic calcifications consistent with ol d granulomatous disease. No interval change in small bilateral low-attenuation bilateral adrenal abraham omas, the larger on the left measuring 1.3 cm. Chronic bilateral renal cysts, the largest on the left measuring up to 5.4 cm. Large amount of stool scattered throughout the colon suggestive of constipat ion small bowel and appendix are normal. Bladder is normal. Moderate-sized fat-containing right ingui nal hernia. Bilateral total hip arthroplasties with prominent streak artifact which limits assessment of the surrounding bone and soft tissues. Increased lobular regions of soft tissue density about the left hip and extending into the left iliopsoas muscles. See separate left hip CT report from one day prior for further detail. Severe lumbar spondylosis. IMPRESSION: 1. 4.3 x 3.1 cm lingular mass concerning for primary bronchogenic carcinoma. The superior segmental b ronchus of the lingula terminates abruptly at the mass which would be amenable to bronchoscopic biops y. 2. Likely aspirated barium within multiple bronchi within a region of consolidation in the right lowe r lobe consistent with pneumonia. 3. 4.8 cm ascending thoracic aortic aneurysm. 4. Cholelithiasis. 5. Large amount of colonic stool suggestive of constipation. 6. Bilateral total hip arthroplasties with multiple lobular soft tissue densities about the left hip with differential including inflammatory pseudomass is, hematoma or abscesses in the appropriate clin ical setting. See separate left hip CT report from one day prior for further detail. Reviewed, dictated and finalized at location A. IMPRESSION: 1. 4.3 x 3.1 cm lingular mass concerning for primary bronchogenic carcinoma. Th e superior segmental bronchus of the lingula terminates abruptly at the mass wh ich would be amenable to bronchoscopic biopsy. 2. Likely aspirated barium within multiple bronchi within a region of consolida tion in the right lower lobe consistent with pneumonia. 3. 4.8 cm ascending thoracic aortic aneurysm. 4. Cholelithiasis. 5. Large amount of colonic stool suggestive of constipation. 6. Bilateral total hip arthroplasties with multiple lobular soft tissue densiti es about the left hip with differential including inflammatory pseudomass is, h ematoma or abscesses in the appropriate clinical setting. See separate left hip CT report from one day prior for further detail.
--- NOTE | ~2024-07-25 | CT_ITS ---
EXAMINATION: CT hip LT wo con DATE: 07/26/2024 12:19 INDICATION: Severe left hip pain TECHNIQUE: High resolution computed tomography (CT) of the left hip was performed without intravenous contrast. Additional sagittal and coronal reconstructions were performed. Automated exposure control and iterative reconstruction technique were employed. The dose-length product was 535.03 mGy-cm. COMPARISON: Radiographs dated 07/25/[address] dated 05/19/2020 FINDINGS: Again seen is a noncemented left total hip arthroplasty which remains well seated in near-anatomic al ignment with no fracture or periprosthetic lucency to suggest loosening or infection. Severe spondylo sis in the visualized lower lumbar spine including severe left-sided facet osteoarthritis at L3-L4 th rough L5-S1. Mild bilateral sacral erect osteoarthritis with anterior bridging osteophytes. Again see n is chronic erosion with sclerotic margins along the anterior left acetabulum which could be related to what appears to be chronic fluid filled left iliopsoas bursa evaluation of which is somewhat limi jhonny due to prominent metallic streak artifact surrounding the left hip hemiarthroplasty. There are pe ripheral calcifications associated with pseudomasses proximal abductor compartment superficial to the obturator ring, in the tissues deep to the obturator ring and along the medial aspect of the left ac etabulum as well as along the lateral and posterior margin of the left acetabulum. There are multiple small lobular regions of subtly increased density extending proximally along the left psoas muscle a lso most likely related to inflammatory pseudomass is although differential would include small hemat omas or abscesses in the appropriate clinical setting. Bladder and visualized portions of bowels are unremarkable moderate amount of stool in the rectum. No evident free fluid in the pelvis. No patholog ically enlarged pelvic or left inguinal lymphadenopathy. IMPRESSION: 1. Left total hip arthroplasty with no acute osseous abnormality. 2. Increased density and some peripheral calcification associated with multiple lobular likely inflam matory pseudomasses about the left hip including extending proximally along the left psoas muscle whi ch is progressed since the prior study. Differential would include hematoma or abscess in the appropr iate clinical setting. Lymph node assessment of the soft tissues in the vicinity of the left hip and proximal femur is somewhat limited due to prominent metallic streak artifact from the arthroplasty. Reviewed, dictated and finalized at location A. IMPRESSION: 1. Left total hip arthroplasty with no acute osseous abnormality. 2. Increased density and some peripheral calcification associated with multiple lobular likely inflammatory pseudomasses about the left hip including extendin g proximally along the left psoas muscle which is progressed since the prior st udy. Differential would include hematoma or abscess in the appropriate clinical setting. Lymph node assessment of the soft tissues in the vicinity of the left hip and proximal femur is somewhat limited due to prominent metallic streak ar tifact from the arthroplasty.
--- NOTE | 2024-07-25 20:49 | ED_ITS ---
HPI - General Adult General Chief complaint: Extremity Problem,Nontraumatic Stated complaint: Upper Extremity Problem Time Seen by Provider: 07/25/24 20:48 Source: patient, family and EMS Mode of arrival: EMS History of Present Illness HPI narrative: 78 YEARS OLD WHITE MALE CAME FROM HOME BY AMBULANCE COMPLAINING OF PAIN AT THE RIGHT SHOULDER AND LEFT HIP. PATIENT HAD A FALL 1 WEEK AGO, WENT TO [facility], [place], , COMPLAINING OF RIGHT SHOULDER AND LEFT HIP PAIN, X-RAY SHOWED A RIGHT SHOULDER FRACTURE, NO HIP FRACTURE. PATIENT ON ELIQUIS FOR ATRIAL FIBRILLATION, UNABLE TO MANAGE AND CONTROL HIS PAIN AT HOME, FAMILY UNABLE TO TAKE CARE OF HIM, CAME TO THE EMERGENCY ROOM FOR PAIN MANAGEMENT AND POSSIBLE REHAB PLACEMENT. Related Data Home Medications Medication Instructions Recorded Confirmed amitriptyline 25 mg tablet 25 mg PO DAILY 05/19/20 07/25/24 montelukast 10 mg tablet 10 mg PO DAILY 05/19/20 07/25/24 omeprazole 20 mg capsule,delayed 20 mg PO DAILY 05/19/20 07/25/24 release apixaban 5 mg tablet (Eliquis) 5 mg PO BID 07/25/24 07/25/24 Allergies Allergy/AdvReac Type Severity Reaction Status Date / Time Iodine and Iodide Containing Allergy Unknown Verified 05/19/20 09:25 Produc Review of Systems Review of Systems: All systems reviewed & are unremarkable except as noted in HPI and below PMFSH Past Medical History Medical History (Updated 07/25/24 @ 21:28 by Nicola Mcdaniels MD) Alcoholism Cigarette smoker COPD (chronic obstructive pulmonary disease) Strangulated hernia of abdominal wall Surgical History Surgical History History of hernia repair Family History Family History Father Acute myocardial infarction Chronic obstructive pulmonary disease Mother Diabetes mellitus Social History Social History Smoking status: Former smoker Tobacco type: e-cigarettes/vaping Second hand tobacco smoke exposure: No Alcohol intake: former Substance use: never Gender identity (if verbalized by the patient): Male Sexual Orientation (if Verbalized by the Patient): Straight or Heterosexual Spiritual care concerns: No Exam Narrative: GENERAL APPEARANCE: WELL-DEVELOPED, WELL-NOURISHED , HEARING IMPAIRMENT SKIN: NORMAL COLOR HEAD: NORMOCEPHALIC, NONTRAUMATIC EYES: CLEAR CONJUNCTIVA ENT: OROPHARYNX NORMAL, EARS NORMAL, NOSE NORMAL NECK: SUPPLE, NONTENDER CHEST AND RESPIRATORY: AIRWAY PATENT, NO RESPIRATORY DISTRESS, NO ACCESSORY MUSCLE USE HEART: REGULAR RATE/RHYTHM ABDOMEN: SOFT, NONTENDER, NO ORGANOMEGALY, QUIET BOWEL SOUNDS VASCULAR: NORMAL PERIPHERAL PULSES, NORMAL CAPILLARY REFILL. MUSCULOSKELETAL: RIGHT SHOULDER SHOWED DIFFUSE SWELLING, ECCHYMOSIS, HEMATOMA, SEVERE LIMITED RANGE OF MOTION, LEFT HIP EXAMINATION SHOWED SLIGHT DIFFUSE TENDERNESS LATERALLY, SLIGHT BRUISES, NO OBVIOUS DEFORMITY. SLIGHT LIMITED RANGE OF MOTION OF THE LEFT HIP. NEUROLOGIC: ALERT AND ORIENTED TO HIS NAME ONLY Course Vital Signs Vital signs: Vital Signs Temperature 36.9 C 07/25/24 20:49 Pulse Rate 98 07/25/24 20:49 Respiratory Rate 20 07/25/24 20:49 Blood Pressure 128/73 07/25/24 20:49 Pulse Oximetry 98 07/25/24 20:49 Oxygen Delivery Room Air 07/25/24 20:49 Temperature 36.9 C 07/25/24 20:49 Pulse Rate 88 07/25/24 21:52 Respiratory Rate 20 07/25/24 21:52 Blood Pressure 102/56 L 07/25/24 21:52 Pulse Oximetry 94 07/25/24 21:52 Oxygen Delivery Room Air 07/25/24 21:52 Medical Decision Making MDM Narrative Medical decision making narrative: PATIENT HAD A FALL 1 WEEK AGO, COMPLAINED OF RIGHT SHOULDER AND LEFT HIP PAIN, WENT TO [facility] [place], WORKUP SHOWED FRACTURE RIGHT HUMERUS. NO ACUTE ABNORMALITIES OF THE LEFT HIP. PATIENT UNABLE TO MANAGE PAIN AND ACTIVITY AT HOME WITHOUT POINT OF CARE TECHNICIAN. FAMILY UNABLE TO TAKE CARE OF HIM, SEVERE HEARING IMPAIRMENT, DEMENTIA, Vital Signs Vital Signs: Vital Signs Temperature 36.9 C 07/25/24 20:49 Pulse Rate 98 07/25/24 20:49 Respiratory Rate 20 07/25/24 20:49 Blood Pressure 128/73 07/25/24 20:49 Pulse Oximetry 98 07/25/24 20:49 Oxygen Delivery Room Air 07/25/24 20:49 Temperature 36.9 C 07/25/24 20:49 Pulse Rate 88 07/25/24 21:52 Respiratory Rate 20 07/25/24 21:52 Blood Pressure 102/56 L 07/25/24 21:52 Pulse Oximetry 94 07/25/24 21:52 Oxygen Delivery Room Air 07/25/24 21:52 Lab Data 07/25/24 21:41 07/25/24 21:41 Labs: Lab Results 07/25/24 Range/Units 21:41 WBC 15.1 H (4.8-10.8) K/mm3 RBC 2.63 L (4.70-6.10) M/mm3 Hgb 7.8 L (12.4-15.3) g/dL Hct 23.5 L (37.0-46.0) % MCV 89.4 (78.0-102.0) fL MCH 29.7 (27.0-31.0) pg MCHC 33.2 (32-36) g/dL RDW 14.6 H (11.6-14.4) % Plt Count 520 H (150-420) K/mm3 MPV 8.5 L (8.7-11.0) fl Immature Gran % (Auto) 2.8 H (0.0-0.0) % Neut % (Auto) 75.6 H (50.0-70.0) % Lymph % (Auto) 11.7 L (18.0-42.0) % Wright % (Auto) 8.3 (2.0-11.0) % Eos % (Auto) 1.1 (1.0-6.0) % Baso % (Auto) 0.5 (0.0-1.0) % Lymph # (Auto) 1.77 (1.10-4.50) K/mm3 Wright # (Auto) 1.26 H (0.10-0.90) K/mm3 Eos # (Auto) 0.16 (0.02-0.50) K/mm3 Baso # (Auto) 0.07 (0.00-0.10) K/mm3 Abs Immat Gran (auto) 0.42 H (0.00-0.00) K/mm3 Absolute Neuts (auto) 11.44 H (1.70-7.20) K/mm3 Absolute Nucleated RBC 0.00 (0.00-0.00) K/mm3 Nucleated RBC % 0.0 (0-0.0) % Sodium 134 L (136-145) mmol/L Potassium 3.9 (3.5-5.1) mmol/L Chloride 98 (98-108) mmol/L Carbon Dioxide 25 (21-32) mmol/L Anion Gap 11 (4-12) mmol/L BUN 16 (7-18) mg/dL Creatinine 1.02 (0.70-1.30) mg/dL Estim Creat Clear Calc 55 ml/min Estimated GFR > 60 (59 - ) Glucose 105 H (70-99) mg/dL Calculated Osmolality 279 L (285-295) mOsm/kg Calcium 8.3 L (8.5-10.1) mg/dL Total Bilirubin 1.0 (0.00-1.00) mg/dL AST 19 (15-37) U/L ALT 18 (16-63) U/L Alkaline Phosphatase 73 (46-116) U/L Total Protein 5.9 L (6.4-8.2) g/dL Albumin 2.5 L (3.4-5.0) g/dL Critical Care Time Critical Care Time Critical Care Time: No Discharge Plan Discharge Clinical Impression: Fracture of right shoulder, Hip pain, left Patient Disposition: Still a Patient Condition: Guarded Prognosis Additional Instructions: ADMIT TO HOSPITAL FOR PAIN MANAGEMENT AND REHAB PLACEMENT Prescriptions: No Action Eliquis 5 mg tablet 5 mg PO BID amitriptyline 25 mg tablet 25 mg PO DAILY omeprazole 20 mg capsule,delayed release(DR/EC) 20 mg PO DAILY montelukast 10 mg tablet 10 mg PO DAILY acetaminophen 500 mg Tablet 1,000 mg PO Q12H Qty: 20 0RF Rx Instructions: OTC lisinopril 20 mg Tablet 20 mg PO QAM 30 Days Qty: 30 0RF melatonin 5 mg Tablet 5 mg PO HS Qty: 30 0RF cyclobenzaprine 10 mg tablet 10 mg PO BID PRN (Reason: Hip pain) Qty: 0 0RF albuterol sulfate 2.5 mg /3 mL (0.083 %) solution for nebulization 2.5 mg continuous nebulization Q4-6H PRN (Reason: Shortness Of Breath) Qty: 0 0RF hydrocodone-acetaminophen 10-325 mg tablet 0.5 tablet PO Q4-6H PRN (Reason: Pain) Qty: 0 0RF Follow-up/Referrals: Enoc Cook MD [Primary Care Provider] -
[2024-07-25] MEDS: MORPHINE SULFATE (*CRX) 4 MG/ML INJ IV PUSH (21:48)
[2024-07-25] MEDS: ONDANSETRON INJ 4 MG/2 ML VIAL IV PUSH (21:49)
[2024-07-25 21:54] LABS: Basophils Absolute Auto 0.07 K/mm3 (0.00-0.10); Basophils Percent Auto 0.5 % (0.0-1.0); Eosinophils Absolute Auto 0.16 K/mm3 (0.02-0.50); Eosinophils Percent Auto 1.1 % (1.0-6.0); Hematocrit 23.5 % (37.0-46.0); Hemoglobin 7.8 g/dL (12.4-15.3); Immature Granulocyte Absolute 0.42 K/mm3 (0.00-0.00); Immature Granulocyte Percent A 2.8 % (0.0-0.0); Lymphocytes Absolute Auto 1.77 K/mm3 (1.10-4.50); Lymphocytes Percent Auto 11.7 % (18.0-42.0); Mean Corpuscular HGB Conc 33.2 g/dL (32-36); Mean Corpuscular Hemoglobin 29.7 pg (27.0-31.0); Mean Corpuscular Volume 89.4 fL (78.0-102.0); Mean Platelet Volume 8.5 fl (8.7-11.0); Monocytes Absolute Auto 1.26 K/mm3 (0.10-0.90); Monocytes Percent Auto 8.3 % (2.0-11.0); Neutrophils Absolute Auto 11.44 K/mm3 (1.70-7.20); Neutrophils Percent Auto 75.6 % (50.0-70.0); Platelet Count Result 520 K/mm3 (150-420); Red Blood Count 2.63 M/mm3 (4.70-6.10); Red Cell Distribution Width 14.6 % (11.6-14.4); White Blood Count 15.1 K/mm3 (4.8-10.8)
[2024-07-25 22:05] LABS: Alanine Aminotransferase 18 U/L (16-63); Albumin Level 2.5 g/dL (3.4-5.0); Alkaline Phosphatase 73 U/L (46-116); Anion Gap 11 mmol/L (4-12); Aspartate Amino Transferase 19 U/L (15-37); Blood Urea Nitrogen 16 mg/dL (7-18); Calcium 8.3 mg/dL (8.5-10.1); Carbon Dioxide 25 mmol/L (21-32); Chloride 98 mmol/L (98-108); Estimated CRCL calculation 55 ml/min; Estimated Glomerular Filt Rate > 60; Glucose 105 mg/dL (70-99); Osmolality Calculated 279 mOsm/kg (285-295); Potassium 3.9 mmol/L (3.5-5.1); Sodium 134 mmol/L (136-145); Total Protein 5.9 g/dL (6.4-8.2)
--- NOTE | 2024-07-25 22:37 | PC.NURSE ---
Completed a belonging sheet on pt
--- NOTE | 2024-07-25 23:23 | PC.NURSE ---
Transported pt to Room 210 w/o difficulty
[2024-07-25] MEDS: SODIUM CHLORIDE 0.9% IV 1,000 ML 100 ML IV CONT (23:30)
[2024-07-26] VITALS: BP 111/64; PULSE 97; RESP 18; TEMP 36.3; O2SAT 97
[2024-07-26] MEDS: MORPHINE SULFATE (*CRX) 2 MG/ML INJ 4 MG IV PUSH ×4 (00:01→16:40)
[2024-07-26 08:00] VITALS: BP 130/58; PULSE 91; RESP 14; TEMP 36.4; O2SAT 94
[2024-07-26 08:46] LABS: Hematocrit 24.3 % (37.0-46.0); Hemoglobin 7.7 g/dL (12.4-15.3); Mean Corpuscular HGB Conc 31.7 g/dL (32-36); Mean Corpuscular Hemoglobin 29.6 pg (27.0-31.0); Mean Corpuscular Volume 93.5 fL (78.0-102.0); Mean Platelet Volume 8.7 fl (8.7-11.0); Platelet Count Result 477 K/mm3 (150-420); Red Cell Distribution Width 14.8 % (11.6-14.4); White Blood Count 12.6 K/mm3 (4.8-10.8)
--- NOTE | 2024-07-26 08:50 | P.HP_ITS ---
H&P: HPI History of Present Illness Date/Time: 07/26/24 08:50 Chief Complaint: RT Shoulder pain/LT hip pain Narrative: Patient is a 78-year-old male who presented to stop ER via ambulance for complaints of right shoulder pain and left hip pain. Patient reports he fell 1 week ago and went to [facility], [place] for evaluation where he was diagnosed with a right shoulder fracture but no acute fracture of the left hip. patient presented today with uncontrolled pain and inability to care for himself at home. patient with past medical history alcoholism, HTN, COPD, chronic anticoagulation of Eliquis and recent diagnosis of lung cancer no treatment currently. patient had x-ray pelvis hips with no acute fracture, mild leukocytosis, and anemia with a hemoglobin of 7.8 last recorded 6 months ago 12. 2. patient denied any chest pain, shortness of breath, nausea vomiting, abdominal pain dizziness only endorsed severe pain to right shoulder and left hip with inability to move his right shoulder. patient was admitted to the medical unit for further evaluation and treatment of severe pain post fall with fracture. right shoulder with severe swelling possible hematoma ordered CT scan pending. patient states he was supposed to see an orthopedic surgeon today but came to the hospital instead. Review of Systems Review of Systems: All systems reviewed & are unremarkable except as noted in HPI and below PMFSH Past Medical History Medical History (Updated 07/26/24 @ 09:50 by Gabby Ayala APRN) Alcoholism Cigarette smoker COPD (chronic obstructive pulmonary disease) Strangulated hernia of abdominal wall Surgical History Surgical History History of hernia repair Family History Family History Father Acute myocardial infarction Chronic obstructive pulmonary disease Mother Diabetes mellitus Social History Social History Smoking packs per day: 2 Smoking cigarettes per day: 40.0 Years smoked: 60 Smoking pack-years: 120.00 Smoking status: Former smoker Tobacco type: cigarettes Second hand tobacco smoke exposure: Yes Smoking end date: 07/11/24 Alcohol intake: never Substance use: never Do You Feel Safe in your Home?: Yes Lack of Transportation: No Lack of Food: Never True Current Housing: I Have Housing Concerned About Future Housing: No Difficulty Paying Gas/Electric Bills: No Difficulty Paying for Meds: No Currently Unemployed: No Education: Trade/Vocational Certificate Difficulty w/ Childcare or Family Care: No Gender identity (if verbalized by the patient): Male Sexual Orientation (if Verbalized by the Patient): Straight or Heterosexual Spiritual care concerns: No Meds Home Medications and Allergies Home Medications Medication Instructions Recorded Confirmed Type amitriptyline 25 mg tablet 25 mg PO DAILY 05/19/20 07/25/24 History montelukast 10 mg tablet 10 mg PO DAILY 05/19/20 07/25/24 History omeprazole 20 mg capsule,delayed 20 mg PO DAILY 05/19/20 07/25/24 History release acetaminophen 500 mg tablet 1,000 mg PO Q12H Chronic Pain #20 05/20/20 07/25/24 Rx tabs albuterol sulfate 2.5 mg/3 mL 2.5 mg (3 mL) continuous 05/20/20 07/25/24 Rx (0.083 %) solution for nebulization nebulization Q4-6H PRN Shortness Of Breath #0 mL cyclobenzaprine 10 mg tablet 10 mg PO BID PRN Hip pain #0 tabs 05/20/20 07/25/24 Rx hydrocodone 10 mg-acetaminophen 0.5 tablet PO Q4-6H PRN Pain #0 05/20/20 07/25/24 Rx 325 mg tablet tabs lisinopril 20 mg tablet 20 mg PO QAM HTN 30 days #30 tabs 05/20/20 07/25/24 Rx melatonin 5 mg tablet 5 mg PO HS Insomnia #30 tabs 05/20/20 07/25/24 Rx amiodarone 200 mg tablet 200 mg PO DAILY 07/25/24 07/25/24 History apixaban 5 mg tablet (Eliquis) 5 mg PO BID 07/25/24 07/25/24 History buspirone 15 mg tablet 15 mg PO DAILY 07/25/24 07/25/24 History fluticasone fur. 200 mcg-umeclid 1 ea inhalation DAILY 07/25/24 07/25/24 History 62.5 mcg-vilant 25 mcg inhalat.powder (Trelegy Ellipta) furosemide 40 mg tablet 40 mg PO DAILY 07/25/24 07/25/24 History metoprolol succinate 25 mg 25 mg PO DAILY 07/25/24 07/25/24 History tablet,extended release 24 hr naloxegol 25 mg tablet (Movantik) 25 mg PO DAILY 07/25/24 07/25/24 History ondansetron 4 mg disintegrating 4 mg PO PRN PRN Nausea And Vomiting 07/25/24 07/25/24 History tablet spironolactone 25 mg tablet 25 mg PO DAILY 07/25/24 07/25/24 History Allergies Allergy/AdvReac Type Severity Reaction Status Date / Time Iodine and Iodide Containing Allergy Unknown Verified 05/19/20 09:25 Produc Vital Signs Vital Signs - 24 hr 07/25/24 20:49 07/25/24 21:52 07/25/24 21:51 Temperature 98.4 F Pulse Rate 98 88 Respiratory Rate 20 20 Blood Pressure 128/73 102/56 L Pulse Oximetry 98 94 95 Oxygen Delivery Room Air Room Air 07/25/24 21:54 07/25/24 22:00 07/25/24 22:01 Temperature Pulse Rate Respiratory Rate Blood Pressure 102/56 L 116/59 L Pulse Oximetry 96 95 96 Oxygen Delivery 07/25/24 22:15 07/25/24 22:16 07/25/24 22:30 Temperature Pulse Rate 84 Respiratory Rate 20 Blood Pressure 121/58 L Pulse Oximetry 94 94 93 Oxygen Delivery Room Air 07/25/24 22:31 07/25/24 22:45 07/25/24 22:46 Temperature Pulse Rate Respiratory Rate Blood Pressure 120/97 H 118/60 Pulse Oximetry 95 94 94 Oxygen Delivery 07/25/24 23:01 07/25/24 23:02 07/26/24 00:00 Temperature 97.3 F L Pulse Rate 87 97 Respiratory Rate 20 18 Blood Pressure 97/78 L 111/64 Pulse Oximetry 95 94 97 Oxygen Delivery Room Air Room Air 07/26/24 00:00 Temperature Pulse Rate 97 Respiratory Rate 18 Blood Pressure Pulse Oximetry 97 Oxygen Delivery Room Air Exam Narrative: Physical Exam: * GENERAL: Pleasant Alert and oriented x 3 Male . Severe pain in RT shoulder and LT hip * EYES: EOMI. No scleral icterus. PERRLA. * HEENT: Moist mucous membranes. * LUNGS:Diminished bilaterally. No accessory muscle use. * CARDIOVASCULAR: Regular rate and rhythm. No murmur. No JVD. S1-S2 * ABDOMEN: Soft, non tenderness and non-distended. No palpable masses. * EXTREMITIES: LT hip tenderness and sever pain with movement. RT shoulder in sling with severe swelling * SKIN: No rashes or lesions. Skin warm, dry. * NEUROLOGIC: No focal neurological deficits. CN II-XII grossly intact * PSYCHIATRIC: Appropriate mood and affect. Good judgement and insight. No visual or auditory hallucinations. H&P: Results Labs Labs: Short CBC 07/25/24 Range/Units 21:41 WBC 15.1 H (4.8-10.8) K/mm3 Hgb 7.8 L (12.4-15.3) g/dL Hct 23.5 L (37.0-46.0) % Plt Count 520 H (150-420) K/mm3 BMP 07/25/24 21:41 Sodium 134 L Potassium 3.9 Chloride 98 Carbon Dioxide 25 BUN 16 Creatinine 1.02 Glucose 105 H Calcium 8.3 L Liver Function 07/25/24 Range/Units 21:41 Total Bilirubin 1.0 (0.00-1.00) mg/dL AST 19 (15-37) U/L ALT 18 (16-63) U/L Alkaline Phosphatase 73 (46-116) U/L Albumin 2.5 L (3.4-5.0) g/dL Imaging CT scan - pelvis: Radiologist's impression: FINDINGS: BONES: No acute fracture or dislocation. HIP JOINT SPACES: Left hip arthroplasty. SACROILIAC JOINT SPACES/LUMBAR SPINE: The sacroiliac joint spaces are normal. Mild degenerative changes of the visualized lower lumbar spine. PUBIC SYMPHYSIS: Normal. SOFT TISSUES: Vascular atherosclerotic changes. IMPRESSION: No acute osseous abnormality pelvis and left hip. Left hip arthroplasty. Assessment and Plan Assessment and plan (1) Fracture of right shoulder: Code(s): S42.91XA - Fracture of right shoulder girdle, part unspecified, initial encounter for closed fracture Status: Acute Assessment and Plan: Was seen at [facility] [place] 1 week ago for fall and was found to have fractured RT humerus per patient * Sever swelling noted to RT Shoulder * Patient takes eliquis concern for hematoma?? * CT scan pending * sling in place * O/P ortho appointment in [place] was scheduled today however he was unable to ambulate due to sever LT hip pain and came to [facility] * Pending findings on CT scan may need Ortho consult and possible transfer to [place] if indicated * Pain control * PT/OT (2) Hip pain, left: Code(s): M25.552 - Pain in left hip Status: Acute Assessment and Plan: Patient states his has been having problems with his LT hip for awhile but after his fall at home it has gotten worse to the point he can't ambulate * XRAY showed no acute osseous abnormalities of the pelvis or left hip/ left hip arthroplasty * Previous CT 04/2020 showed possible erosion * CT LT hip pending * Pain control * PT/OT * Will need to follow-up with Ortho O/P * patient lives at home and takes care of his with Alzheimer's however patient is likely going to need senior living facility for PT he is currently max assist (3) COPD (chronic obstructive pulmonary disease): Code(s): J44.9 - Chronic obstructive pulmonary disease, unspecified Status: Acute Assessment and Plan: * Stable * smoking cessation * recent lung cancer diagnosis no current treatment * Nebs PRN resumed (4) Lung cancer: Code(s): C34.90 - Malignant neoplasm of unspecified part of unspecified bronchus or lung Status: Acute Assessment and Plan: * Recently diagonosed * Currently on no treatment * Oxygen PRN * Nebs PRN * smoking cessation * plans to follow-up O/P with oncology (5) Chronic anticoagulation: Code(s): 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 Status: Acute Assessment and Plan: * On Eliquis * Hgb 7.8 POA/12.2 6 months ago * Holding due to anemia some concern for hematoma to RT shoulder (6) Anemia: Code(s): D64.9 - Anemia, unspecified Status: Acute Assessment and Plan: * HGB 7.8 POA/12.2 6 months ago * holding eliquis * some concern for hematoma to RT shoulder * CT scan to evaluate * Will monitor HGB * Transfuse PRBC if hgb <7.0 * Patient denied any blood in stool/Urine (7) Thrombocythemia: Code(s): D75.839 - Thrombocytosis, unspecified Status: Acute Assessment and Plan: * PLT 520 POA * Likely secondary to his recent lung cancer diagnosis * will follow-up with oncology O/P (8) Aortic aneurysm: Code(s): I71.9 - Aortic aneurysm of unspecified site, without rupture Status: Acute Assessment and Plan: * CT 04/2020 showed a 4.8 cm ascending Thoracic Aortic Aneurysm * Patient denied chest pain/pressure/SOB Plan Code status: Full code per patient DVT prophylaxis: SCD's eliquis on hold Stress ulcer prophylaxis: Protonix 40 daily PT/OT notes: PT/OT Max assist likely need swing or skilled Disposition: Patient was admitted to the medical unit due to severe right shoulder pain left hip pain following a fall last week patient reports at this time he is unable to ambulate on own or care for self. CT shoulder and hip pen ding for further evaluation will continue with pain control order PT/OT. We will speak with ortho at [place] any concerning findings on CT reports and if there would be any need for a transfer for ortho. patient currently is a max assist and will likely need a swing or senior living facility placement. Patient does report he is currently caring for his at home with Alzheimer's. Quality VTE Prophylaxis VTE prophylaxis: mechanical ordered -Patient's previous records reviewed on admission -ER notes reviewed in detail on admission -discussed all findings and current treatment plan with patient/Family/POA -Consultations reviewed for recommendations -Patient's disposition for safe discharge discussed with showcase trimmer Dictation performed by [employer] direct speech recognition software, therefore assembler tubing variants and typographical errors may occur. Hospitalist TORREY Advance Care Plan I have confirmed that the patient's Advanced Care Plan is present, code status is documented, or surrogate decision maker is listed in patient medical record.: Yes Medication Reconciliation I have utilized all available resources to obtain, update and review the patients current medications (includes all prescriptions, OTC, herbals, cannabis, and nutritional supplements).: Yes The patient is not eligible for med reconciliation; the patient is in a emergent medical situation where delaying treatment would jeopardize the patients health.: No
[2024-07-26 09:03] LABS: Alanine Aminotransferase 10 U/L (16-63); Albumin Level 2.3 g/dL (3.4-5.0); Alkaline Phosphatase 70 U/L (46-116); Anion Gap 8 mmol/L (4-12); Aspartate Amino Transferase 12 U/L (15-37); Blood Urea Nitrogen 13 mg/dL (7-18); Calcium 8.3 mg/dL (8.5-10.1); Carbon Dioxide 26 mmol/L (21-32); Chloride 103 mmol/L (98-108); Estimated CRCL calculation 57 ml/min; Estimated Glomerular Filt Rate > 60; Glucose 93 mg/dL (70-99); Osmolality Calculated 284 mOsm/kg (285-295); Sodium 137 mmol/L (136-145); Total Protein 5.8 g/dL (6.4-8.2)
[2024-07-26] MEDS: SODIUM CHLORIDE 0.9% IV 1,000 ML 100 ML IV CONT (09:15)
[2024-07-26] MEDS: MONTELUKAST SODIUM 10 MG TABLET PO (09:23)
[2024-07-26] MEDS: ACETAMINOPHEN 500 MG TABLET 1000 MG PO ×2 (09:23→20:07)
[2024-07-26] MEDS: FLUTICASONE/UMECLIDIN/VILANTER 100-62.5-25 MCG ELLIPTA 1 PUFF INHALATION (09:23)
[2024-07-26] MEDS: SPIRONOLACTONE 25 MG TABLET PO (09:24)
[2024-07-26] MEDS: busPIRone HCL 5 MG TABLET 15 MG PO (09:24)
[2024-07-26] MEDS: CYCLOBENZAPRINE HCL 10 MG TABLET PO (09:24)
[2024-07-26 09:25] VITALS: PULSE 91
[2024-07-26] MEDS: METOPROLOL SUCCINATE EXT REL 25 MG TABCR PO (09:25)
[2024-07-26] MEDS: AMIODARONE HCL 200 MG TABLET PO (09:25)
[2024-07-26] MEDS: FUROSEMIDE 40 MG TABLET PO (09:25)
[2024-07-26] MEDS: PANTOPRAZOLE 40 MG TABLET PO (09:26)
[2024-07-26] MEDS: DOCUSATE SODIUM 100 MG CAPSULE PO ×2 (09:26→16:40)
--- NOTE | 2024-07-26 11:09 | PTOPEVAL1 ---
Assessment and note entered by Mary Rubi DPT Evaluation Information Assessment Status Evaluation Reported Pain Level Pain Score 10,5: Self Report Pain Score 5: Self Report Pain Score 4,4: Self Report Pain Score 10: Self Report Pain Score 0: FLACC Pain Score 7: Self Report Pain Score 6,6: Self Report Pain Score 3,3: Self Report Pain Score 5,5: Self Report Pain Score 5: Self Report Pain Score 10: Self Report Pain Score 10,10: Self Report Assessment PT Clinical Summary Mr. Lake is a 78 year old male who presents to hospital observation status s/p fall with R humerus fracture. He demonstrates R shoulder and L hip pain, decreased B LE strength, max assist for bed mobility and inability to stand at this time due to pain. Prior to hospitalization patient was independent and living at home. Patient would benefit from skilled PT and possible swing bed placement to improved independence and return home at [facility]. Plan of Care PT Services Indicated Yes These treatments will address the objective and functional deficits as defined above. The patient will be advanced safely and appropriately in order for the patient to progress towards his/her prior level of function. Additional exercises will be introduced and as well as a comprehensive home exercise program upon discharge, if needed, ?to ensure carryover of functional gains achieved in the clinic. This treatment plan has been reviewed and agreement upon by the patient.
[2024-07-26] MEDS: HYDROcodone/acetaminophen (*CRX) 5-325 MG TABLET 1 TAB PO ×2 (11:15→15:53)
[2024-07-26 11:33] LABS: Add Urine Microscopic? YES; Appearance Urine Clear (Clear); Bilirubin Urine Negative (Negative); Blood Urine Negative (Negative); Color Urine Light Yellow (Yellow); Glucose Urine UA Negative (Negative); Ketones Urine Negative (Negative); Leukocyte Esterase Ur Negative LEU/UL (Negative); Nitrate Urine Negative (Negative); Protein Urine Negative (Negative)
[2024-07-26 11:38] LABS: Bacteria Urine None seen /hpf; RBC Urine None seen /hpf (0-2); WBC Urine None seen /hpf (0-3)
[2024-07-26] MEDS: ONDANSETRON INJ 4 MG/2 ML VIAL IV PUSH (15:53)
[2024-07-26 16:00] VITALS: BP 103/60; PULSE 64; RESP 14; TEMP 37; O2SAT 94
[2024-07-26] MEDS: MELATONIN 5 MG TABLET PO (20:07)
[2024-07-26] MEDS: AMITRIPTYLINE HCL 25 MG TABLET PO (20:07)
[2024-07-26] MEDS: MORPHINE SULFATE (*CRX) 2 MG/ML INJ IV PUSH (20:07)
[2024-07-27] VITALS (10 sets, daily range): BP systolic 129–150; BP diastolic 59–65; PULSE 86–99; RESP 16–20; TEMP 36.4–36.8; O2SAT 92–98
[2024-07-27] MEDS: MORPHINE SULFATE (*CRX) 2 MG/ML INJ IV PUSH ×3 (00:24→10:23)
[2024-07-27] MEDS: ONDANSETRON INJ 4 MG/2 ML VIAL IV PUSH ×2 (00:24→05:55)
[2024-07-27] MEDS: CYCLOBENZAPRINE HCL 10 MG TABLET PO (03:19)
[2024-07-27] MEDS: SODIUM CHLORIDE 0.9% IV 1,000 ML 100 ML IV CONT (03:23)
[2024-07-27 05:39] LABS: Mean Corpuscular HGB Conc 31.8 g/dL (32-36); Mean Corpuscular Hemoglobin 30.2 pg (27.0-31.0); Mean Corpuscular Volume 94.8 fL (78.0-102.0); Mean Platelet Volume 8.5 fl (8.7-11.0); Platelet Count Result 484 K/mm3 (150-420); Red Blood Count 2.32 M/mm3 (4.70-6.10); Red Cell Distribution Width 14.6 % (11.6-14.4); White Blood Count 16.9 K/mm3 (4.8-10.8)
--- NOTE | 2024-07-27 05:45 | PC.NURSE ---
Lab called to report a critical Hgb of 7.0.
[2024-07-27 06:01] LABS: Alanine Aminotransferase 18 U/L (16-63); Albumin Level 2.2 g/dL (3.4-5.0); Alkaline Phosphatase 75 U/L (46-116); Anion Gap 8 mmol/L (4-12); Aspartate Amino Transferase 17 U/L (15-37); Bilirubin,Total 1.1 mg/dL (0.00-1.00); Blood Urea Nitrogen 15 mg/dL (7-18); Calcium 8.4 mg/dL (8.5-10.1); Carbon Dioxide 24 mmol/L (21-32); Chloride 99 mmol/L (98-108); Estimated CRCL calculation 51 ml/min; Estimated Glomerular Filt Rate > 60; Glucose 104 mg/dL (70-99); Osmolality Calculated 272 mOsm/kg (285-295); Potassium 4.1 mmol/L (3.5-5.1); Sodium 131 mmol/L (136-145); Total Protein 5.7 g/dL (6.4-8.2)
--- NOTE | 2024-07-27 06:17 | PC.NURSE ---
Emelyn Ayala NP, notified of Hgb of 7.0. New orders to transfuse one unit of PRBC.
[2024-07-27 08:29] LABS: CRP 9.4 mg/dL (0.0-0.9)
[2024-07-27 08:30] LABS: Basophils Absolute Auto 0.06 K/mm3 (0.00-0.10); Basophils Percent Auto 0.4 % (0.0-1.0); Eosinophils Absolute Auto 0.17 K/mm3 (0.02-0.50); Hematocrit 20.8 % (37.0-46.0); Immature Granulocyte Absolute 0.39 K/mm3 (0.00-0.00); Immature Granulocyte Percent A 2.4 % (0.0-0.0); Immature Platelet Fraction Pct 0.9 % (1.0-7.0); Lymphocytes Absolute Auto 1.75 K/mm3 (1.10-4.50); Lymphocytes Percent Auto 10.7 % (18.0-42.0); Mean Corpuscular HGB Conc 33.2 g/dL (32-36); Mean Corpuscular Hemoglobin 29.7 pg (27.0-31.0); Mean Corpuscular Volume 89.7 fL (78.0-102.0); Mean Platelet Volume 8.9 fl (8.7-11.0); Monocytes Absolute Auto 1.18 K/mm3 (0.10-0.90); Monocytes Percent Auto 7.2 % (2.0-11.0); Neutrophils Absolute Auto 12.87 K/mm3 (1.70-7.20); Neutrophils Percent Auto 78.3 % (50.0-70.0); Platelet Count Result 634 K/mm3 (150-420); Red Blood Count 2.32 M/mm3 (4.70-6.10); Red Cell Distribution Width 14.7 % (11.6-14.4); White Blood Count 16.4 K/mm3 (4.8-10.8)
[2024-07-27 08:34] LABS: Hemoglobin 6.9 g/dL (12.4-15.3)
[2024-07-27 09:28] LABS: Erythrocyte Sedimentation Rate 66 mm/hr (0-20)
[2024-07-27] MEDS: SODIUM CHLORIDE 0.9% IV 250 ML 30 ML IV CONT (10:25)
[2024-07-27] MEDS: METOPROLOL SUCCINATE EXT REL 25 MG TABCR PO (10:42)
[2024-07-27] MEDS: ACETAMINOPHEN 500 MG TABLET 1000 MG PO (10:42)
[2024-07-27] MEDS: busPIRone HCL 5 MG TABLET 15 MG PO (10:43)
[2024-07-27] MEDS: SPIRONOLACTONE 25 MG TABLET PO (10:43)
[2024-07-27] MEDS: AMIODARONE HCL 200 MG TABLET PO (10:43)
[2024-07-27] MEDS: MONTELUKAST SODIUM 10 MG TABLET PO (10:43)
[2024-07-27] MEDS: PANTOPRAZOLE 40 MG TABLET PO (10:43)
[2024-07-27] MEDS: FUROSEMIDE 40 MG TABLET PO (10:43)
[2024-07-27] MEDS: FLUTICASONE/UMECLIDIN/VILANTER 100-62.5-25 MCG ELLIPTA 1 PUFF INHALATION (10:44)
[2024-07-27] MEDS: DOCUSATE SODIUM 100 MG CAPSULE PO (10:44)
--- NOTE | 2024-07-27 11:10 | ECG_ITS ---
Test Date: 2024-07-27 11:30:31 Measurements Intervals [place] Rate: 95 P: 51 PA: 142 QRS: 57 QRSD: 90 T: 66 QT: 376 QTc: 474 Interpretive Statements SINUS RHYTHM No previous ECG available for comparison Electronically Signed On 07-27-2024 14:21:18 CDT by Laura Briones M.D.
--- NOTE | 2024-07-27 11:30 | PC.NURSE ---
Increased blood rate to 100ml/hr on pump.
--- NOTE | 2024-07-27 12:08 | P.PNIM_ITS ---
Progress Note: A&P Assessment and Plan (1) Fracture of right shoulder: Code(s): S42.91XA - Fracture of right shoulder girdle, part unspecified, initial encounter for closed fracture Status: Acute Assessment and Plan: Was seen at [facility] 1 week ago for fall and was found to have fractured RT humerus per patient * Severe swelling noted to RT Shoulder * Patient takes Eliquis concern for hematoma?? * CT scan showed a comminuted 3 part fracture of the proximal right humerus * I called and spoke with Dr. Portillo, our orthopedic on-call for [facility] and he recommended transfer for tertiary care given concerns of possible left hip abscess in setting of prior left hip arthroplasty. He also reviewed the imaging of the patient's right shoulder and stated his right shoulder is displaced. He recommended placing a shoulder immobilizer. This has been ordered. 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 There were concerns for possible hematoma versus abscess. * Pain control * PT/OT * Will need to follow-up with Ortho O/P * patient lives at home and takes care of his with Alzheimer's however patient is likely going to need usp facility for PT he is currently max assist (3) Pneumonia: Code(s): J18.9 - Pneumonia, unspecified organism Status: Acute Assessment and Plan: White blood cell count 15.1 on admission, 16.4 today, Neutrophils 78.3%. patient has been afebrile blood pressure stable 148/65, pulse of 94, satting 97% on room air. He has a congestive nonproductive cough. * CT chest today is concerning for right lower lobe pneumonia * quad viral screen added * sputum and blood cultures ordered, lactic pending * patient was started on Zosyn and azithromycin * Mucinex b.i.d., DuoNeb scheduled * no wheezing so will hold off on steroids for now * incentive spirometry ordered, head of bed 30? (4) COPD (chronic obstructive pulmonary disease): Code(s): J44.9 - Chronic obstructive pulmonary disease, unspecified Status: Acute Assessment and Plan: * Stable * smoking cessation * recent lung cancer diagnosis no current treatment. Was going to follow-up with oncology next week and establish care. 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 CT abdomen pelvis showed no RP bleed but large stool burden and colon which is likely contributing to his pain and nausea. (8) Thrombocythemia: Code(s): D75.839 - Thrombocytosis, unspecified Status: Acute Assessment and Plan: * PLT 520 POA * Likely secondary to his recent lung cancer diagnosis * will follow-up with oncology O/P (9) Aortic aneurysm: Code(s): I71.9 - Aortic aneurysm of unspecified site, without rupture Status: Acute Assessment and Plan: * CT 04/2020 showed a 4.8 cm ascending Thoracic Aortic Aneurysm * Patient denied chest pain/pressure/SOB (10) Abdominal pain: Code(s): R10.9 - Unspecified abdominal pain Status: Acute Assessment and Plan: new onset of abdominal pain to the left lower quadrant left upper quadrant and left flank. CT abdomen pelvis showed large stool burden. * Suppository now and add daily MiraLax * Zofran as needed Plan Code status: Full code per patient DVT prophylaxis: SCD's eliquis on hold Stress ulcer prophylaxis: Protonix 40 daily PT/OT notes: PT/OT Max assist Disposition: Patient will transfer for higher level of care. Case was d iscussed with Dr. Mark, hospitalist at [facility]. patient has been accepted under his care with orthopedic consultation. Case was discussed with patient's daughter Karena who is aware of possible transfer and agreeable. Patient's daughter reports that he was seen there a few months ago after his left hip was displaced. He was also treated for a pneumonia in March with acute respiratory failure requiring intubation. I addressed code status with the patient today and he would like to remain a full code at this time. Subjective Date/time seen: 07/27/24 12:08 Interval history: Patient is seen resting in bed complaining of abdominal and left flank pain. He has also been having nausea. he states overall he feels poorly. He has pain to his right shoulder with diffuse bruising and pain to his left hip. he has a congested nonproductive cough with no complaints of fever or chills. He denies chest pain. He says intermittently he feels short of breath. He has not had a bowel movement in over a week. He reports that last week he had a fall and was seen at the emergency room in [facility] where he was told he had a right shoulder fracture. He was supposed to see Orthopedics yesterday at [place]. Since initial presentation to [place] emergency room he has sustained another fall at home with worsening pain which is what caused him to come to [place] emergency room for evaluation. Review of Systems Review of Systems: All systems reviewed & are unremarkable except as noted in HPI and below Exam Narrative: General: appears uncomfortable, in no acute distress, frail, hard of hearing Respiratory: breathing is unlabored with even chest rise/fall, lungs are coarse without wheezing Cardiovascular: Rate and rhythm regular, normal s1s2, no murmur Abdomen: Soft, round, moderately tender, hypoactive bowel sounds Extremities: No cyanosis or clubbing. Right shoulder with diffuse ecchymosis and edema anterior-laterally, Pulses 2/2, right shoulder in sling. Neuro: A&O x 4 Skin: Warm, dry, intact, diffuse ecchymosis to the right side of his shoulder and trunk Objective Data Vital Signs Vital Signs: Vital Signs - 24 hr 07/26/24 16:00 07/27/24 08:00 07/27/24 10:30 Temperature 98.6 F 97.6 F 97.9 F Pulse Rate 64 97 91 Respiratory Rate 14 20 17 Blood Pressure 103/60 145/62 H 134/62 Pulse Oximetry 94 95 97 Oxygen Delivery Room Air Room Air 07/27/24 10:42 07/27/24 10:43 07/27/24 10:48 Temperature 97.7 F Pulse Rate 91 91 92 Respiratory Rate 16 Blood Pressure 129/63 Pulse Oximetry 95 Oxygen Delivery 07/27/24 11:48 Temperature 98 F Pulse Rate 94 Respiratory Rate 16 Blood Pressure 148/65 H Pulse Oximetry 97 Oxygen Delivery Intake/Output Intake/Output: Intake & Output 07/24/24 07/25/24 07/26/24 07/27/24 23:59 23:59 23:59 23:59 Intake Total 4395 661.7 Output Total 2150 Balance 2245 661.7 Meds/Results Medications: Active Medications Generic Name Dose Route Start Last Admin Trade Name Freq PRN Reason Stop Dose Admin Acetaminophen 1,000 mg 07/26/24 09:00 07/27/24 10:42 Acetaminophen 500 Mg Tablet PO 1,000 mg Q12H SHERRON Administration Hydrocodone Bitart/Acetaminophen 1 tab 07/26/24 11:08 07/26/24 15:53 Hydrocodone/Acetaminophen (*Crx) 5-325 Mg Tablet PO 1 tab Q4H PRN Administration Pain Rated 4-6 Albuterol 2.5 mg 07/26/24 08:38 Albuterol Sulfate Neb 2.5 Mg/3 Ml Inh INHALATION Q4HRT PRN SHORTNESS OF BREATH Amiodarone HCl 200 mg 07/26/24 09:00 07/27/24 10:43 Amiodarone Hcl 200 Mg Tablet PO 200 mg DAILY SHERRON Administration Amitriptyline HCl 25 mg 07/26/24 21:00 07/26/24 20:07 Amitriptyline Hcl 25 Mg Tablet PO 25 mg HS SHERRON Administration Azithromycin 500 mg 07/27/24 11:10 Azithromycin 250 Mg Tablet PO 07/31/24 22:00 DAILY SHERRON Buspirone HCl 15 mg 07/26/24 09:00 07/27/24 10:43 Buspirone Hcl 5 Mg Tablet PO 15 mg DAILY SHERRON Administration Cyclobenzaprine HCl 10 mg 07/26/24 08:18 07/27/24 03:19 Cyclobenzaprine Hcl 10 Mg Tablet PO 10 mg BID PRN Administration Hip pain Docusate Sodium 100 mg 07/26/24 09:00 07/27/24 10:44 Docusate Sodium 100 Mg Capsule PO 100 mg BID SHERRON Administration Fluticasone/Umeclidinium/Vilanterol 1 puff 07/26/24 09:00 07/27/24 10:44 Fluticasone/Umeclidin/Vilanter 100-62.5-25 Mcg Ellipta INHALATION 1 puff DAILY SHERRON Administration Furosemide 40 mg 07/26/24 09:00 07/27/24 10:43 Furosemide 40 Mg Tablet PO 40 mg DAILY SHERRON Administration Sodium Chloride 250 mls @ 30 mls/hr 07/27/24 06:29 07/27/24 10:25 Normal Saline Iv IV CONT 07/27/24 14:48 30 mls/hr .Q8H20M STA Administration Piperacillin Sod/Tazobactam Sod 4.5 gm in 100 mls @ 200 mls/hr 07/27/24 11:00 Zosyn 4.5 Gm/Ns 100 Ml IVPB Q6H SHERRON Melatonin 5 mg 07/26/24 21:00 07/26/24 20:07 Melatonin 5 Mg Tablet PO 5 mg HS SHERRON Administration Metoprolol Succinate 25 mg 07/26/24 09:00 07/27/24 10:42 Metoprolol Succinate Ext Rel 25 Mg Tabcr PO 25 mg DAILY SHERRON Administration Montelukast Sodium 10 mg 07/26/24 09:00 07/27/24 10:43 Montelukast Sodium 10 Mg Tablet PO 10 mg DAILY SHERRON Administration Morphine Sulfate 2 mg 07/26/24 18:04 07/27/24 10:23 Morphine Sulfate (*Crx) 2 Mg/Ml Inj IV PUSH 2 mg Q3H PRN Administration Pain Rated 7-10 Ondansetron HCl 4 mg 07/25/24 22:33 07/27/24 05:55 Ondansetron Inj 4 Mg/2 Ml Vial IV PUSH 4 mg Q6H PRN Administration Nausea And Vomiting Pantoprazole Sodium 40 mg 07/26/24 09:00 07/27/24 10:43 Pantoprazole 40 Mg Tablet PO 40 mg QAM SHERRON Administration Polyethylene Glycol 17 gm 07/26/24 09:00 07/27/24 10:44 Polyethylene Glycol 3350 17 Gm Powd.Pack PO Not Given QAM SHERRON Polyethylene Glycol 17 gm 07/27/24 12:10 Polyethylene Glycol 3350 17 Gm Powd.Pack PO QAM SHERRON Spironolactone 25 mg 07/26/24 09:00 07/27/24 10:43 Spironolactone 25 Mg Tablet PO 25 mg DAILY SHERRON Administration Radiology Results: ITS Impressions Hip/Pelvis X-Ray 07/25/24 22:37 IMPRESSION: No acute osseous abnormality pelvis and left hip. Left hip arthroplasty. Hip CT 07/26/24 12:38 IMPRESSION: 1. Left total hip arthroplasty with no acute osseous abnormality. 2. 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 Differential would include hematoma or abscess in the appropriate clinical setting. Lymph node assessment of the soft tissues in the vicinity of the left hip and proximal femur is somewhat limited due to prominent metallic streak artifact from the arthroplasty. Shoulder CT 07/26/24 12:49 IMPRESSION: 1. Comminuted three-part fracture of proximal right humerus. 2. Mild polyarticular osteoarthritis. 3. Airspace opacities in right lung lower lobe, consistent with atelectasis versus pneumonia. Chest/Abdomen/Pelvis CT 07/27/24 09:55 IMPRESSION: 1. 4.3 x 3.1 cm lingular mass concerning for primary bronchogenic carcinoma. The superior segmental bronchus of the lingula terminates abruptly at the mass which would be amenable to bronchoscopic biopsy. 2. Likely aspirated barium within multiple bronchi within a region of consolidation in the right lower lobe consistent with pneumonia. 3. 4.8 cm ascending thoracic aortic aneurysm. 4. Cholelithiasis. 5. Large amount of colonic stool suggestive of constipation. 6. Bilateral total hip arthroplasties with multiple lobular soft tissue densities about the left hip with differential including inflammatory pseudomass is, hematoma or abscesses in the appropriate clinical setting. See separate left hip CT report from one day prior for further detail. Labs Labs: Laboratory Results - last 24 hr 07/27/24 07/27/24 07/27/24 05:31 07:10 07:18 WBC 16.9 H 16.4 H RBC 2.32 L 2.32 L Hgb 7.0 L* 6.9 L* Hct 22.0 L 20.8 L MCV 94.8 89.7 MCH 30.2 29.7 MCHC 31.8 L 33.2 RDW 14.6 H 14.7 H Plt Count 484 H 634 H MPV 8.5 L 8.9 Immature Gran % (Auto) 2.4 H Neut % (Auto) 78.3 H Lymph % (Auto) 10.7 L Quay % (Auto) 7.2 Eos % (Auto) 1.0 Baso % (Auto) 0.4 Lymph # (Auto) 1.75 Quay # (Auto) 1.18 H Eos # (Auto) 0.17 Baso # (Auto) 0.06 Abs Immat Gran (auto) 0.39 H Absolute Neuts (auto) 12.87 H Absolute Nucleated RBC 0.00 Nucleated RBC % 0.0 % Immature Plt Fraction 0.9 L ESR 66 H Sodium 131 L Potassium 4.1 Chloride 99 Carbon Dioxide 24 Anion Gap 8 BUN 15 Creatinine 1.10 Estim Creat Clear Calc 51 Estimated GFR > 60 Glucose 104 H Calculated Osmolality 272 L Calcium 8.4 L Total Bilirubin 1.1 H AST 17 ALT 18 Alkaline Phosphatase 75 C-Reactive Protein 9.4 H Total Protein 5.7 L Albumin 2.2 L Blood Type O Positive Antibody Screen Negative Crossmatch See Detail Quality VTE Prophylaxis VTE prophylaxis: mechanical ordered
[2024-07-27] MEDS: HYDROcodone/acetaminophen (*CRX) 5-325 MG TABLET 1 TAB PO (12:38)
[2024-07-27] MEDS: BISACODYL 10 MG SUPPOSITORY RECTAL (12:39)
[2024-07-27] MEDS: polyethylene glycoL 3350 17 GM POWD.PACK PO (12:39)
[2024-07-27] MEDS: AZITHROMYCIN 250 MG TABLET 500 MG PO (12:39)
[2024-07-27 12:48] LABS: Influenza A QL RT-PCR Negative (Negative); Influenza B QL RT-PCR Negative (Negative); RSV RNA, RT-PCR Negative (Negative); SARS-CoV-2 RNA PCR Negative (Negative)
--- NOTE | 2024-07-27 13:00 | PC.NURSE ---
Gave report to Georgie at [facility] transfer line.
[2024-07-27 13:14] LABS: Lactic Acid Reflex 0.6 mmol/L (0.4-2.0)
[2024-07-27] MEDS: IPRATROPIUM 0.5 MG/ALBUTEROL SULFATE 2.5 MG AMPUL.NEB 3 ML INHALATION (13:21)
[2024-07-27] MEDS: PIPERACILLIN/TAZ 4.5G/NS 100ML 4.5 GM/100 ML BAG IVPB (13:36)
--- NOTE | 2024-07-27 13:51 | PC.NURSE ---
[facility] paged for transfer
--- NOTE | 2024-07-27 14:07 | PC.NURSE ---
shoulder immoblizer placed, pulses present, no change in pain
[2024-07-27] MEDS: MORPHINE SULFATE (*CRX) 4 MG/ML INJ IV PUSH (14:15)
--- NOTE | 2024-07-27 14:20 | PC.NURSE ---
Report given to SAAS at bedside. All questions answered. Pt transferred to [facility] for transfer to [facility]. Transfer Line (gary) notified of discharge time and additional pain meds given since telephone report.
--- NOTE | 2024-07-27 16:56 | P.TS_ITS ---
Transfer Discharge Sum: Prov Provider Date of admission: 07/25/24 22:33 Primary care physician: Enoc Cook MD Admitting clinician: Michael Pang MD Consults: 07/25/24 Care Coordination Consult Routine Reason for Consult:: Acute Rehab Consult DS: Admitting Diagnosis Discharge Date 07/27/24 Admitting Diagnosis Fall, right arm pain DS: Discharge Diagnosis Discharge Diagnosis (1) Fracture of right shoulder: Code(s): S42.91XA - Fracture of right shoulder girdle, part unspecified, initial encounter for closed fracture Status: Acute Assessment and Plan: Was seen at [facility] 1 week ago for fall and was found to have fractured RT humerus per patient * Severe swelling noted to RT Shoulder * Patient takes Eliquis concern for hematoma?? * CT scan showed a comminuted 3 part fracture of the proximal right humerus * I called and spoke with Dr. Portillo, our orthopedic on-call for [facility] and he recommended transfer for tertiary care given concerns of possible left hip abscess in setting of prior left hip arthroplasty. He also reviewed the imaging of the patient's right shoulder and stated his right shoulder is displaced. He recommended placing a shoulder immobilizer. This has been ordered. 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 There were concerns for possible hematoma versus abscess. * Pain control * PT/OT * Will need to follow-up with Ortho O/P * patient lives at home and takes care of his with Alzheimer's however patient is likely going to need halfway facility for PT he is currently max assist (3) Pneumonia: Code(s): J18.9 - Pneumonia, unspecified organism Status: Acute Assessment and Plan: White blood cell count 15.1 on admission, 16.4 today, Neutrophils 78.3%. patient has been afebrile blood pressure stable 148/65, pulse of 94, satting 97% on room air. He has a congestive nonproductive cough. * CT chest today is concerning for right lower lobe pneumonia * quad viral screen added * sputum and blood cultures ordered, lactic pending * patient was started on Zosyn and azithromycin * Mucinex b.i.d., DuoNeb scheduled * no wheezing so will hold off on steroids for now * incentive spirometry ordered, head of bed 30? (4) COPD (chronic obstructive pulmonary disease): Code(s): J44.9 - Chronic obstructive pulmonary disease, unspecified Status: Acute Assessment and Plan: * Stable * smoking cessation * recent lung cancer diagnosis no current treatment. Was going to follow-up with oncology next week and establish care. * Nebs PRN resumed (5) Lung cancer: Code(s): C34.90 - Malignant neoplasm of unspecified part of unspecified bronchus or lung Status: Acute Assessment and Plan: * Recently diagnosed * Currently on no treatment * Oxygen PRN * Nebs PRN * smoking cessation * plans to follow-up O/P with oncology (6) Chronic anticoagulation: Code(s): Z79.01 - custodial (current) use of anticoagulants Status: Acute Assessment and Plan: * On Eliquis-- Unclear why he is on Eliquis * Hgb 7.8 POA/12.2 6 months ago * Holding due to anemia some concern for hematoma to RT shoulder (7) Anemia: Code(s): D64.9 - Anemia, unspecified Status: Acute Assessment and Plan: * HGB 7.8 POA/12.2 6 months ago * holding eliquis * some concern for hematoma to RT shoulder * CT scan to evaluate * Will monitor HGB * Transfuse PRBC if hgb <7.0 * hemoglobin 6.9 today patient is receiving 1 unit of PRBC * initially concerns for possible retroperitoneal bleed given left abdominal pain and left flank pain. CT abdomen pelvis showed no RP bleed but large stool burden and colon which is likely contributing to his pain and nausea. (8) Thrombocythemia: Code(s): D75.839 - Thrombocytosis, unspecified Status: Acute Assessment and Plan: * PLT 520 POA * Likely secondary to his recent lung cancer diagnosis * will follow-up with oncology O/P (9) Aortic aneurysm: Code(s): I71.9 - Aortic aneurysm of unspecified site, without rupture Status: Acute Assessment and Plan: * CT 04/2020 showed a 4.8 cm ascending Thoracic Aortic Aneurysm * Patient denied chest pain/pressure/SOB (10) Abdominal pain: Code(s): R10.9 - Unspecified abdominal pain Status: Acute Assessment and Plan: new onset of abdominal pain to the left lower quadrant left upper quadrant and left flank. CT abdomen pelvis showed large stool burden. * Suppository now and add daily MiraLax * Zofran as needed Plan Code status: Full code per patient DVT prophylaxis: SCD's eliquis on hold Stress ulcer prophylaxis: Protonix 40 daily PT/OT notes: PT/OT Max assist Disposition: Patient will transfer for higher level of care. Case was discussed with Dr. Mark, hospitalist at [facility]. patient has been accepted under his care with orthopedic consultation. Case was discussed with patient's daughter Karena who is aware of possible transfer and agreeable. Patient's daughter reports that he was seen there a few months ago after his left hip was displaced. He was also treated for a pneumonia in March with acute respiratory failure requiring intubation. I addressed code status with the patient today and he would like to remain a full code at this time. Transfer Discharge Sum: Med Medications Active and Home Medications: Home Medications amitriptyline 25 mg tablet 25 mg PO DAILY 05/19/20 [History Confirmed 07/25/24] montelukast 10 mg tablet 10 mg PO DAILY 05/19/20 [History Confirmed 07/25/24] omeprazole 20 mg capsule,delayed release 20 mg PO DAILY 05/19/20 [History Confirmed 07/25/24] acetaminophen 500 mg tablet 1,000 mg PO Q12H Chronic Pain #20 tabs 05/20/20 [Rx Confirmed 07/25/24] albuterol sulfate 2.5 mg/3 mL (0.083 %) solution for nebulization 2.5 mg (3 mL) continuous nebulization Q4-6H PRN Shortness Of Breath #0 mL 05/20/20 [Rx Confirmed 07/25/24] cyclobenzaprine 10 mg tablet 10 mg PO BID PRN Hip pain #0 tabs 05/20/20 [Rx Confirmed 07/25/24] hydrocodone 10 mg-acetaminophen 325 mg tablet 0.5 tablet PO Q4-6H PRN Pain #0 tabs 05/20/20 [Rx Confirmed 07/25/24] lisinopril 20 mg tablet 20 mg PO QAM HTN 30 days #30 tabs 05/20/20 [Rx Confirmed 07/25/24] melatonin 5 mg tablet 5 mg PO HS Insomnia #30 tabs 05/20/20 [Rx Confirmed 07/25/24] amiodarone 200 mg tablet 200 mg PO DAILY 07/25/24 [History Confirmed 07/25/24] apixaban 5 mg tablet (Eliquis) 5 mg PO BID 07/25/24 [History Confirmed 07/25/24] buspirone 15 mg tablet 15 mg PO DAILY 07/25/24 [History Confirmed 07/25/24] fluticasone fur. 200 mcg-umeclid 62.5 mcg-vilant 25 mcg inhalat.powder (Trelegy Ellipta) 1 ea inhalation DAILY 07/25/24 [History Confirmed 07/25/24] furosemide 40 mg tablet 40 mg PO DAILY 07/25/24 [History Confirmed 07/25/24] metoprolol succinate 25 mg tablet,extended release 24 hr 25 mg PO DAILY 07/25/24 [History Confirmed 07/25/24] naloxegol 25 mg tablet (Movantik) 25 mg PO DAILY 07/25/24 [History Confirmed 07/25/24] ondansetron 4 mg disintegrating tablet 4 mg PO PRN PRN Nausea And Vomiting 07/25/24 [History Confirmed 07/25/24] spironolactone 25 mg tablet 25 mg PO DAILY 07/25/24 [History Confirmed 07/25/24] Transfer Discharge Sum: Hosp Hospital Course Hospital course: Patient is a 78-year-old male who presented to stop ER via ambulance for complaints of right shoulder pain and left hip pain. He reports that last week he had a fall and was seen at the emergency room in [facility] where he was told he had a right shoulder fracture. He was supposed to see Orthopedics yesterday at [place]. Since initial presentation to [place] emergency room he has sustained another fall at home with worsening pain which is what caused him to come to [place] emergency room for evaluation. patient presented today with uncontrolled pain and inability to care for himself at home. Patient with past medical history alcoholism, HTN, COPD, chronic anticoagulation of Eliquis and recent diagnosis of lung cancer no treatment currently. patient had x-ray pelvis hips with no acute fracture, mild leukocytosis, and anemia with a hemoglobin of 7.8 last recorded 6 months ago 12.2. Patient is seen resting in bed complaining of abdominal and left flank pain. He has also been having nausea. he states overall he feels poorly. He has pain to his right shoulder with diffuse bruising and pain to his left hip. He has a congested nonproductive cough with no complaints of fever or chills. He denies chest pain. He says intermittently he feels short of breath. He has not had a bowel movement in over a week. 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 Concern for possible hematoma or abscess. CT of the left shoulder showed a comminuted 3 part fracture of the proximal right humerus with anterior displacement. Case was discussed with Dr. Portillo, orthopedics at [facility] was recommended transfer to a tertiary care center for orthopedic consultation. Case was discussed with Dr Ibarra, hospitalist at [facility] and he has accepted for transfer. Patient's daughter, Karena has been updated on transfer. He was discharged in stable condition. Time Spent with Patient Time attestation: Total time spent providing and/or coordinating transfer services: 75 Exam Narrative: General: appears uncomfortable, in no acute distress, frail, hard of hearing Respiratory: breathing is unlabored with even chest rise/fall, lungs are coarse without wheezing Cardiovascular: Rate and rhythm regular, normal s1s2, no murmur Abdomen: Soft, round, moderately tender, hypoactive bowel sounds Extremities: No cyanosis or clubbing. Right shoulder with diffuse ecchymosis and edema anterior-laterally, Pulses 2/2, right shoulder in sling. Neuro: A&O x 4 Skin: Warm, dry, intact, diffuse ecchymosis to the right side of his shoulder and trunk DS: Data Data Completed and Pending Labs on day of discharge: Labs from last 24 hours 07/27/24 07/27/24 07/27/24 11:31 07:18 07:10 WBC 16.4 H RBC 2.32 L Hgb 6.9 L* Hct 20.8 L MCV 89.7 MCH 29.7 MCHC 33.2 RDW 14.7 H Plt Count 634 H MPV 8.9 Immature Gran % (Auto) 2.4 H Neut % (Auto) 78.3 H Lymph % (Auto) 10.7 L [place] % (Auto) 7.2 Eos % (Auto) 1.0 Baso % (Auto) 0.4 Lymph # (Auto) 1.75 [place] # (Auto) 1.18 H Eos # (Auto) 0.17 Baso # (Auto) 0.06 Abs Immat Gran (auto) 0.39 H Absolute Neuts (auto) 12.87 H Absolute Nucleated RBC 0.00 Nucleated RBC % 0.0 % Immature Plt Fraction 0.9 L ESR 66 H Sodium Potassium Chloride Carbon Dioxide Anion Gap BUN Creatinine Estim Creat Clear Calc Estimated GFR Glucose Calculated Osmolality Lactic Acid 0.6 Calcium Total Bilirubin AST ALT Alkaline Phosphatase C-Reactive Protein 9.4 H Total Protein Albumin Influenza A (RT-PCR) Negative Influenza B (RT-PCR) Negative RSV (RT-PCR) Negative SARS-CoV-2 RNA (RT-PCR) Negative Blood Type O Positive Antibody Screen Negative Crossmatch See Detail 07/27/24 05:31 WBC 16.9 H RBC 2.32 L Hgb 7.0 L* Hct 22.0 L MCV 94.8 MCH 30.2 MCHC 31.8 L RDW 14.6 H Plt Count 484 H MPV 8.5 L Immature Gran % (Auto) Neut % (Auto) Lymph % (Auto) [place] % (Auto) Eos % (Auto) Baso % (Auto) Lymph # (Auto) [place] # (Auto) Eos # (Auto) Baso # (Auto) Abs Immat Gran (auto) Absolute Neuts (auto) Absolute Nucleated RBC Nucleated RBC % % Immature Plt Fraction ESR Sodium 131 L Potassium 4.1 Chloride 99 Carbon Dioxide 24 Anion Gap 8 BUN 15 Creatinine 1.10 Estim Creat Clear Calc 51 Estimated GFR > 60 Glucose 104 H Calculated Osmolality 272 L Lactic Acid Calcium 8.4 L Total Bilirubin 1.1 H AST 17 ALT 18 Alkaline Phosphatase 75 C-Reactive Protein Total Protein 5.7 L Albumin 2.2 L Influenza A (RT-PCR) Influenza B (RT-PCR) RSV (RT-PCR) SARS-CoV-2 RNA (RT-PCR) Blood Type Antibody Screen Crossmatch
== END 2024-07-27 14:20 | disposition short-term general hospital (02) ==
LOC: CHSED 21:38 → CHS2ND 22:41
PROVIDERS: Nurse Practitioner Family; Admitting Provider Internal Medicine; Emergency Provider Emergency Medicine; PCP Internal Medicine; Visit Provider Nurse Practitioner Acute Care
DX: M25.511 Pain in right shoulder (principal); M25.552 Pain in left hip; S42.201D Unspecified fracture of upper end of right humerus, subsequent encounter for fracture with routine healing; W19.XXXD Unspecified fall, subsequent encounter; C34.90 Malignant neoplasm of unspecified part of unspecified bronchus or lung; J18.9 Pneumonia, unspecified organism; J44.0 Chronic obstructive pulmonary disease with (acute) lower respiratory infection; D64.9 Anemia, unspecified; R10.9 Unspecified abdominal pain; D75.839 Thrombocytosis, unspecified; I71.21 Aneurysm of the ascending aorta, without rupture; I48.91 Unspecified atrial fibrillation; J44.9 Chronic obstructive pulmonary disease, unspecified; F03.90 Unspecified dementia, unspecified severity, without behavioral disturbance, psychotic disturbance, mood disturbance, and anxiety; Z11.52 Encounter for screening for COVID-19; Z79.51 Long term (current) use of inhaled steroids; Z79.01 Long term (current) use of anticoagulants; Z79.891 Long term (current) use of opiate analgesic; Z87.891 Personal history of nicotine dependence; Z96.642 Presence of left artificial hip joint
CPT/HCPCS: 36415; 36430; 71250; 73200; 73502; 73700; 74176; 80053; 81001; 83605; 85025; 85027; 85055; 85652; 86140; 86850; 86900; 86901; 86920; 87637; 93005; 94640; 96365; 96374; 96375; 96376; 97161; 97166; 99285; A4565; A9270; G0378; J2270; J2405; J2543; J7030; J7050; L3670; P9016

== ENCOUNTER 2025-05-10 08:29 | Emergency (ER) | payer MEDICARE, SELFPAY ==
--- NOTE | ~2025-05-10 | XR_ITS ---
XR chest 1V portable 05/10/2025 09:28 Indication: Shortness Procedure: AP portable chest Comparison: 02/12/2024 Findings: There is chronic left perihilar and bibasilar scarring/fibrosis. The lungs are hyperinflate d which is consistent with, but not diagnostic of chronic obstructive pulmonary disease. No acute foc al pneumonia, pleural effusion or pneumothorax. Impression: 1: No acute cardiopulmonary disease. Reviewed, dictated and finalized at location A. Impression: 1: No acute cardiopulmonary disease.
[2025-05-10 08:29] VITALS: BP 136/61; PULSE 96; RESP 18; TEMP 36.7; O2SAT 98
--- NOTE | 2025-05-10 08:43 | ED_ITS ---
HPI - Anxiety General Chief Complaint: Anxiety Stated Complaint: shortness of breath Time Seen by Provider: 05/10/25 08:43 Related Data Home Medications ?Medication ?Instructions ?Recorded ?Confirmed ?Last Taken ?Type amitriptyline 25 mg tablet 25 mg PO DAILY 05/19/20 05/10/25 Unknown History montelukast 10 mg tablet 10 mg PO DAILY 05/19/20 05/10/25 Unknown History omeprazole 20 mg capsule,delayed 20 mg PO DAILY 05/19/20 05/10/25 Unknown History release amiodarone 200 mg tablet 200 mg PO DAILY 07/25/24 05/10/25 Unknown History apixaban 5 mg tablet (Eliquis) 5 mg PO BID 07/25/24 05/10/25 Unknown History buspirone 15 mg tablet 15 mg PO DAILY 07/25/24 05/10/25 Unknown History fluticasone fur. 200 mcg-umeclid 1 ea inhalation DAILY 07/25/24 05/10/25 Unknown History 62.5 mcg-vilant 25 mcg inhalat.powder (Trelegy Ellipta) furosemide 40 mg tablet 40 mg PO DAILY 07/25/24 05/10/25 Unknown History metoprolol succinate 25 mg 25 mg PO DAILY 07/25/24 05/10/25 Unknown History tablet,extended release 24 hr naloxegol 25 mg tablet (Movantik) 25 mg PO DAILY 07/25/24 05/10/25 Unknown History ondansetron 4 mg disintegrating 4 mg PO PRN PRN Nausea And Vomiting 07/25/24 05/10/25 Unknown History tablet spironolactone 25 mg tablet 25 mg PO DAILY 07/25/24 05/10/25 Unknown History Allergies Allergy/AdvReac Type Severity Reaction Status Date / Time Iodine and Iodide Containing Allergy Unknown Verified 05/10/25 08:41 [facility] Past Medical History Medical History (Updated 07/27/24 @ 12:35 by Archana Carrasco, [employer]) Alcoholism Cigarette smoker COPD (chronic obstructive pulmonary disease) Strangulated hernia of abdominal wall Surgical History Surgical History History of hernia repair Family History Family History Father Acute myocardial infarction Chronic obstructive pulmonary disease Mother Diabetes mellitus Social History Social History Smoking packs per day: 2 Smoking cigarettes per day: 40.0 Years smoked: 60 Smoking pack-years: 120.00 Smoking status: Former smoker Tobacco type: cigarettes Second hand tobacco smoke exposure: Yes Smoking end date: 07/11/24 Alcohol intake: never Substance use: never Do You Feel Safe in your Home?: Yes Lack of Transportation: No Lack of Food: Never True Current Housing: I Have Housing Concerned About Future Housing: No Difficulty Paying Gas/Electric Bills: No Difficulty Paying for Meds: No Currently Unemployed: No Education: Trade/Vocational Certificate Difficulty w/ Childcare or Family Care: No Gender identity (if verbalized by the patient): Male Sexual Orientation (if Verbalized by the Patient): Straight or Heterosexual Spiritual care concerns: No Discharge Plan Discharge Patient Language: Citizen Of [place] Prescriptions: No Action Eliquis 5 mg tablet 5 mg PO BID furosemide 40 mg tablet 40 mg PO DAILY amiodarone 200 mg tablet 200 mg PO DAILY spironolactone 25 mg tablet 25 mg PO DAILY metoprolol succinate 25 mg tablet extended release 24 hr 25 mg PO DAILY ondansetron 4 mg tablet,disintegrating 4 mg PO PRN PRN (Reason: Nausea And Vomiting) buspirone 15 mg tablet 15 mg PO DAILY Movantik 25 mg tablet 25 mg PO DAILY Trelegy Ellipta 200-62.5-25 mcg blister with device 1 ea INHALATION DAILY amitriptyline 25 mg tablet 25 mg PO DAILY omeprazole 20 mg capsule,delayed release(DR/EC) 20 mg PO DAILY montelukast 10 mg tablet 10 mg PO DAILY acetaminophen 500 mg Tablet 1,000 mg PO Q12H Qty: 20 0RF Rx Instructions: OTC lisinopril 20 mg Tablet 20 mg PO QAM 30 Days Qty: 30 0RF melatonin 5 mg Tablet 5 mg PO HS Qty: 30 0RF cyclobenzaprine 10 mg tablet 10 mg PO BID PRN (Reason: Hip pain) Qty: 0 0RF albuterol sulfate 2.5 mg /3 mL (0.083 %) solution for nebulization 2.5 mg continuous nebulization Q4-6H PRN (Reason: Shortness Of Breath) Qty: 0 0RF hydrocodone-acetaminophen 10-325 mg tablet 0.5 tablet PO Q4-6H PRN (Reason: Pain) Qty: 0 0RF Follow-up/Referrals: Enoc Cook MD [Primary Care Provider] -
--- NOTE | 2025-05-10 08:50 | ED.SOB ---
HPI - SOB/Dyspnea General Chief Complaint: Anxiety Stated Complaint: shortness of breath Time Seen by Provider: 05/10/25 08:43 Source: patient and EMS Mode of arrival: ambulatory Limitations: no limitations History of Present Illness HPI Narrative: 79-year-old male, smoker history of, hypertension, COPD, ascending aortic aneurysm measuring 4.8 cm, see lung CA( lingular mass with surrounding lesions) status post chemo / RT, status post right humerus fracture in June 2024, status post bilateral hip replacement with chronic left hip pain presents to the ED with -- worsening shortness of breath since yesterday. No cough/ sputum production. -- anterior chest pain which is diffuse. No radiation of the pain. No nausea /vomiting. -- Anxiety/panic attack no fever or chills no history of trauma patient presented to his primary care physician yesterday. MD elicited complaint: shortness of breath and anxiety Pertinent past history: COPD Onset (ago): day(s) ( 1 day) Context: anxiety Timing: constant Severity: severe Exacerbating factors: exertion Relieving factors: nothing Known history of: COPD and other ( Lung cancer status post RT) Associated symptoms: chest pain and orthopnea Treatment prior to arrival: none Related Data Home oxygen amount: none Home Medications ?Medication ?Instructions ?Recorded ?Confirmed ?Last Taken ?Type amitriptyline 25 mg tablet 25 mg PO DAILY 05/19/20 05/10/25 Unknown History montelukast 10 mg tablet 10 mg PO DAILY 05/19/20 05/10/25 Unknown History omeprazole 20 mg capsule,delayed 20 mg PO DAILY 05/19/20 05/10/25 Unknown History release amiodarone 200 mg tablet 200 mg PO DAILY 07/25/24 05/10/25 Unknown History apixaban 5 mg tablet (Eliquis) 5 mg PO BID 07/25/24 05/10/25 Unknown History buspirone 15 mg tablet 15 mg PO DAILY 07/25/24 05/10/25 Unknown History fluticasone fur. 200 mcg-umeclid 1 ea inhalation DAILY 07/25/24 05/10/25 Unknown History 62.5 mcg-vilant 25 mcg inhalat.powder (Trelegy Ellipta) furosemide 40 mg tablet 40 mg PO DAILY 07/25/24 05/10/25 Unknown History metoprolol succinate 25 mg 25 mg PO DAILY 07/25/24 05/10/25 Unknown History tablet,extended release 24 hr naloxegol 25 mg tablet (Movantik) 25 mg PO DAILY 07/25/24 05/10/25 Unknown History ondansetron 4 mg disintegrating 4 mg PO PRN PRN Nausea And Vomiting 07/25/24 05/10/25 Unknown History tablet spironolactone 25 mg tablet 25 mg PO DAILY 07/25/24 05/10/25 Unknown History Allergies Allergy/AdvReac Type Severity Reaction Status Date / Time Iodine and Iodide Containing Allergy Unknown Verified 05/10/25 08:41 Produc Review of Systems Review of Systems: All systems reviewed & are unremarkable except as noted in HPI and below Constitutional: Constitutional: Reports as per HPI, Reports no additional constitutional complaints and Reports weakness Eyes: Eyes: Reports as per HPI and Reports no additional eye complaints ENT: Reports system reviewed and no additional complaints, except as documented and Reports as per HPI Cardiovascular: Cardiovascular: Reports as per HPI, Reports no additional cardiovascular complaints and Reports chest pain Respiratory: Respiratory: Reports as per HPI and Reports no additional respiratory complaints Gastrointestinal: Gastrointestinal: Reports as per HPI and Reports no additional gastrointestinal complaints Genitourinary: Genitourinary: Reports no additional male genitourinary complaints and Reports as per HPI Musculoskeletal: Musculoskeletal: Reports no additional musculoskeletal complaints and Reports as per HPI Comments: chronic left hip pain right shoulder pain with decreased range of motion. Integumentary/Breasts: Skin/Breast: Reports system reviewed and no additional complaints, except as docu and Reports as per HPI Neurologic: Reports system reviewed and no additional complaints, except as documented and Reports as per HPI Psychiatric: Psychiatric: Reports no additional psychiatric complaints and Reports as per HPI Endocrine: Endocrine: Reports no additional endocrine complaints and Reports as per HPI Hematologic/Lymphatic: Hematologic/Lymphatic: Reports no additional hematologic/lymphatic complaints and Reports as per HPI Allergic/Immunologic: Allergic/Immunologic: Reports no additional allergic/immunologic complaints and Reports as per HPI [facility] Past Medical History Medical History (Updated 05/10/25 @ 10:10 by Ramin Barrios MD) Alcoholism Cigarette smoker COPD (chronic obstructive pulmonary disease) Strangulated hernia of abdominal wall Surgical History Surgical History History of hernia repair Family History Family History Father Acute myocardial infarction Chronic obstructive pulmonary disease Mother Diabetes mellitus Social History Social History Smoking packs per day: 2 Smoking cigarettes per day: 40.0 Years smoked: 60 Smoking pack-years: 120.00 Smoking status: Former smoker Tobacco type: cigarettes Second hand tobacco smoke exposure: Yes Smoking end date: 07/11/24 Alcohol intake: never Substance use: never Do You Feel Safe in your Home?: Yes Lack of Transportation: No Lack of Food: Never True Current Housing: I Have Housing Concerned About Future Housing: No Difficulty Paying Gas/Electric Bills: No Difficulty Paying for Meds: No Currently Unemployed: No Education: Trade/Vocational Certificate Difficulty w/ Childcare or Family Care: No Gender identity (if verbalized by the patient): Male Sexual Orientation (if Verbalized by the Patient): Straight or Heterosexual Spiritual care concerns: No Exam Narrative: Vitals are stable. Oxygen saturation of 99% on room air with a respiratory rate of 18. Const: General: ill appearing Nutritional Appearance: well nourished Orientation/consciousness: patient oriented x3 Limitations: no limitations HENMT: Head: normal to inspection Ears: external ears normal Face/Nose/Sinus: Normal external nose present Face and sinus: normal facial exam Mouth: Yes Normal oral and palatal mucosa present Throat: posterior oropharynx normal Eyes: Conjunctivae: conjunctivae normal Pupils: Equal, round and reactive pupils present EOM: EOMs intact bilaterally Direct Ophthalmoscopy: no photophobia Neck: Neck: normal visual inspection, no lymphadenopathy and no meningeal signs Chest: Chest palpation & inspection: normal inspection of the chest Resp: Effort & Inspection: normal respiratory effort Other: Rales right base Cardio: Rate: regular rate Rhythm: regular rhythm GI: GI Palp: Yes Soft to palpation Auscultation: normal bowel sounds Other: no tenderness/ rigidity /rebound. 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 The patient has been saturating 98-100% on room air with a respiratory rate of 18. No bronchospasm noted. The patient is anticoagulated with Eliquis and hands PE is unlikely. Patient is afebrile without any mucopurulent expectoration. No evidence of CHF on chest x-ray. ProBNP is noted to be 289 which is marginally elevated. The patient is on metoprolol/lisinopril / Aldactone and Lasix. Patient tested negative for influenza/ RSV / COVID. His symptoms appear to be secondary to anxiety / panic attacks. Vital Signs Vital signs: Vital Signs Temperature 36.7 C 05/10/25 08:29 Pulse Rate 96 05/10/25 08:29 Respiratory Rate 18 05/10/25 08:29 Blood Pressure 136/61 05/10/25 08:29 Pulse Oximetry 98 05/10/25 08:29 Oxygen Delivery Room Air 05/10/25 08:29 Temperature 36.7 C 05/10/25 08:29 Pulse Rate 96 05/10/25 08:29 Respiratory Rate 18 05/10/25 08:29 Blood Pressure 136/61 05/10/25 08:29 Pulse Oximetry 98 05/10/25 08:29 Oxygen Delivery Room Air 05/10/25 08:29 MDM - SOB/Dyspnea MDM Narrative Medical decision making narrative: Anxiety/panic attack COPD/emphysema Differential Diagnosis Differential diagnosis: Likely congestive heart failure and community acquired pneumonia Medical Records Attestation: I reviewed the patient's medical records. Lab Data Attestation: I reviewed the patient's lab results. 05/10/25 09:21 05/10/25 09:21 Labs: Lab Results 05/10/25 Range/Units 09:21 WBC 12.1 H (4.8-10.8) K/mm3 RBC 4.38 L (4.70-6.10) M/mm3 Hgb 12.7 (12.4-15.3) g/dL Hct 38.6 (37.0-46.0) % MCV 88.1 (78.0-102.0) fL MCH 29.0 (27.0-31.0) pg MCHC 32.9 (32-36) g/dL RDW 13.4 (11.6-14.4) % Plt Count 307 (150-420) K/mm3 MPV 8.9 (8.7-11.0) fl Immature Gran % (Auto) 0.8 H (0.0-0.0) % Neut % (Auto) 85.0 H (50.0-70.0) % Lymph % (Auto) 7.0 L (18.0-42.0) % [place] % (Auto) 6.3 (2.0-11.0) % Eos % (Auto) 0.3 L (1.0-6.0) % Baso % (Auto) 0.6 (0.0-1.0) % Lymph # (Auto) 0.84 L (1.10-4.50) K/mm3 [place]on # (Auto) 0.76 (0.10-0.90) K/mm3 Eos # (Auto) 0.04 (0.02-0.50) K/mm3 Baso # (Auto) 0.07 (0.00-0.10) K/mm3 Abs Immat Gran (auto) 0.10 H (0.00-0.00) K/mm3 Absolute Neuts (auto) 10.25 H (1.70-7.20) K/mm3 Absolute Nucleated RBC 0.00 (0.00-0.00) K/mm3 Nucleated RBC % 0.0 (0-0.0) % Sodium 137 (137-145) mmol/L Potassium 4.1 (3.4-5.0) mmol/L Chloride 104 (98-107) mmol/L Carbon Dioxide 26 (22-30) mmol/L Anion Gap 7 (4-12) mmol/L BUN 16 (9-20) mg/dL Creatinine 1.08 (0.7-1.3) mg/dL Estim Creat Clear Calc 51 ml/min Estimated GFR > 60 (59 - ) Glucose 104 (65-110) mg/dL Calculated Osmolality 285 (285-295) mOsm/kg Lactic Acid 1.5 (0.4-2.0) mmol/L Calcium 9.7 (8.4-10.2) mg/dL Total Bilirubin 0.8 (0.2-1.3) mg/dL AST 25 (17-59) U/L ALT 15 (6-50) U/L Alkaline Phosphatase 86 (38-126) U/L Total Creatine Kinase 39 L (55-170) U/L Troponin I < 0.012 (0.000-0.034) ng/mL NT-Pro-B Natriuret Pep 289 H (19.9-100) pg/mL Total Protein 7.0 (6.3-8.2) g/dL Albumin 4.2 (3.5-5.1) g/dL Lipase 51 (23-300) U/L Influenza A (RT-PCR) Negative (Negative) Influenza B (RT-PCR) Negative (Negative) RSV (RT-PCR) Negative (Negative) SARS-CoV-2 RNA (RT-PCR) Negative (Negative) ECG Data EKG #1: Attestation: I personally reviewed and interpreted this ECG as follows: ECG completion date: 05/10/25 ECG completion time: 09:20 Interpretation: normal sinus rhythm. Right axis deviation. No ST elevation. Discharge Plan Discharge Clinical Impression: Panic disorder, Chronic shortness of breath Patient Disposition: Home Condition: Stable Instructions: Antibiotic Form Patient Language: Syrian Prescriptions: No Action Eliquis 5 mg tablet 5 mg PO BID furosemide 40 mg tablet 40 mg PO DAILY amiodarone 200 mg tablet 200 mg PO DAILY spironolactone 25 mg tablet 25 mg PO DAILY metoprolol succinate 25 mg tablet extended release 24 hr 25 mg PO DAILY ondansetron 4 mg tablet,disintegrating 4 mg PO PRN PRN (Reason: Nausea And Vomiting) buspirone 15 mg tablet 15 mg PO DAILY Movantik 25 mg tablet 25 mg PO DAILY Trelegy Ellipta 200-62.5-25 mcg blister with device 1 ea INHALATION DAILY amitriptyline 25 mg tablet 25 mg PO DAILY omeprazole 20 mg capsule,delayed release(DR/EC) 20 mg PO DAILY montelukast 10 mg tablet 10 mg PO DAILY acetaminophen 500 mg Tablet 1,000 mg PO Q12H Qty: 20 0RF Rx Instructions: OTC lisinopril 20 mg Tablet 20 mg PO QAM 30 Days Qty: 30 0RF melatonin 5 mg Tablet 5 mg PO HS Qty: 30 0RF cyclobenzaprine 10 mg tablet 10 mg PO BID PRN (Reason: Hip pain) Qty: 0 0RF albuterol sulfate 2.5 mg /3 mL (0.083 %) solution for nebulization 2.5 mg continuous nebulization Q4-6H PRN (Reason: Shortness Of Breath) Qty: 0 0RF hydrocodone-acetaminophen 10-325 mg tablet 0.5 tablet PO Q4-6H PRN (Reason: Pain) Qty: 0 0RF Follow-up/Referrals: Enoc Cook MD [Primary Care Provider] - Time of Disposition: 10:10
--- NOTE | 2025-05-10 09:07 | ECG_ITS ---
Test Date: 2025-05-10 09:20:04 Measurements Intervals [place] Rate: 89 P: 46 OR: 183 QRS: 112 QRSD: 86 T: 9 QT: 366 QTc: 445 Interpretive Statements SINUS RHYTHM BASELINE ARTIFACT- I, II, III, AVR, AVL, AVF NORMAL ECG Compared to ECG 07/27/2024 11:30:31 NO SIGNIFICANT CHANGE Electronically Signed On 05-10-2025 09:29:40 CDT by Geoffrey Sol D.O.
--- OUTSIDE RECORDS SUMMARY | 2025-05-10 09:21 | XMS_ITS | Clinical Summary ---
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 Indications: antidepressant 0 Active metoprolol succinate ER (TOPROL-XL) 25 MG 24 hr tabletIndicati ons:hypertensi on TAKE 1 TABLET (25 MG TOTAL) BY MOUTH DAILY. 90 tablet 3 3 Active allopurinol (ZYLOPRIM) 300 MG tabletIndicati ons:Gout Take 1 tablet (300 mg total) by mouth daily. Indications: Gout 4 Active omeprazole (PRILOSEC) 20 MG capsuleIndicat ions:GERD Take 1 capsule (20 mg total) by mouth nightly at bedtime. Indications: GERD 4 Active lisinopril (PRINIVIL) 10 MG tabletIndicati ons:Hypertensi on Take 1 tablet (10 mg total) by mouth daily. Indications: High Blood Pressure 4 Active aspirin EC (ECOTRIN) 81 MG tabletIndicati ons:Anticoagul ant Therapy Take 1 tablet (81 mg total) by mouth daily. Indications: Anticoagulant Therapy 4 Active HYDROcodone-ac etaminophen (NORCO) 10-325 MG tabletIndicati ons:Chronic Pain Take 1 tablet by mouth every 6 (six) hours as needed. Indications: Chronic Pain 20 tablet 4 Active cyclobenzaprin e (FLEXERIL) 10 MG tablet Take 1 tablet (10 mg total) by mouth 3 (three) times daily. Active Fluticasone-Um eclidin-Vilant (TRELEGY ELLIPTA) 200-62.5-25 MCG/ACT AEROSOL POWDER, BREATH ACTIVATEDIndic ations:COPD Inhale 1 puff into the lungs 2 (two) times a day. Indications: COPD 5 Active famotidine (PEPCID) 20 MG tablet Take 1 tablet (20 mg total) by mouth 2 (two) times daily. 60 tablet 5 Active Active Problems Problem Noted Date Diagnosed Date Head injury 02/06/2025 Lung cancer ([facility]) 08/31/2024 Closed fracture of proximal end of right humerus with routine healing 08/10/2024 Encounter for rehabilitation 08/02/2024 Right humeral fracture 08/02/2024 Hyponatremia 11/22/2021 Primary hypertension 10/14/2021 Exertional dyspnea 07/03/2020 Resolved Problems Problem Noted Date Diagnosed Date Resolved Date Pneumonia 07/27/2024 08/05/2024 Pneumonia 04/19/2024 05/01/2024 Encounters Date Type Department Care Team Description 04/06/2025 12:20 PM CDT - 04/06/2025 2:13 PM CDT Emergency [facility] [place] [address] Ivett Tavares MD Sore Throat (Foreign body sensation, went to bed with gum in mouth) Discharge Disposition: Home or Self Care (Routine Discharge) 04/06/2025 Travel 02/09/2025 Telephone [facility] [address] [place] [address] Juliet Matias MD Results (CT ) 02/06/2025 11:42 AM CDT - 02/07/2025 12:57 PM CDT Hospital Encounter [facility] [address] [place] [address] Donta Clark DO Nowlan, Meagan E, MD Fall (Fell outside the hospital lobby getting out of the car) Discharge Disposition: Home or Self Care (Routine Discharge) from Last 3 Months Family History Medical History Relation Comments COPD Father CABG Mother Open Heart Mother Relation Status Comments Father Mother Social History Tobacco Use Types Packs/Day Years Used Date Smoking Tobacco: Former Cigarettes Smokeless Tobacco: Never Tobacco Cessation:Counseling Given: Not Answered Comments:Quit 04/19/24 60 years 1 ppd but has been using a vape without nicotine over the last 2 years Alcohol Use Standard Drinks/Week Comments Not Currently 0 (1 standard drink = 0.6 oz pur e alcohol) OASIS D0700: Social Isolation Answer Da te Recorded Frequency of experiencing loneliness or isolatio n Rarely 10/13/2024 OASIS A1250: Transportation Answer Date Recorded Lack of Transportation (Medical) No 10/13/2024 Lack of Transportation (Non-Medical) No 10/13/2024 Patient Unable or Declines to Respond No 10/13/2024 OASIS B1300: Health Literacy Answer Bernardino e Recorded Frequency of needing help to read materials from doctor or pharmacy Sometimes 10/13/2024 B1300 Health Literacy Answer Date Recor ded How often do you need to hav e someone help you when you read instructions, pamphlets, or other written material from your doctor or pharmacy? Sometimes 07/31/2024 [facility] Utilities Answer Date Recorded In the past 12 months has e mobli, gas, oil, or water [employer] threatened to shut off services in your home? No 02/06/2025 Humiliation, Afraid, Rape, and Kick questionnair e Answer Date Recorded Within the last year, have y ou been afraid of your partner or ex-partner? No 02/06/2025 Within the last year, have y ou been humiliated or emotionally abused in other ways by your partner or ex-partner? No Within the last year, have y ou been kicked, hit, slapped, or otherwise physically hurt by your partner or ex-partner? No 02/06/2025 Within the last year, have y ou been raped or forced to have any kind of sexual activity by your partner or ex-partner? No 02/06/2025 Social Connection and Isolat ion Panel [NHANES] Answer Date Recorded In a typical week, how many times do you talk on the phone with family, friends, or neighbors? Three times a week 07/31/2024 How often do you get togethe r with friends or relatives? More than three times a week 07/31/2024 How often do you attend chur or rastafarian services? Never 07/31/2024 Do you belong to any clubs o r organizations such as yarsanism groups, unions, fraternal or athletic groups, or school groups? No 07/31/2024 How often do you attend meet ings of the clubs or organizations you belong to? Never 07/31/2024 Are you , , di vorced, , never , or living with a partner? 07/31/2024 AUDIT-C Answer Date Recorded Q1: How often do you have a drink containing alcohol? Never 07/31/2024 Q2: How many drinks containi ng alcohol do you have on a typical day when you are drinking? Patient does not drink Q3: How often do you have si x or more drinks on one occasion? Never 07/31/2024 Overall Financial Resource Strain (CARDIA) Answe r Date Recorded How hard is it for you to pa y for the very basics like food, housing, medical care, and heating? Not hard at all 02/06/2025 [facility] - Occupational Stress Questionnaire Answer Date Recorded Do you feel stress - tense, restless, nervous, or anxious, or unable to sleep at night because your mind is troubled all the time - these days? Only a little 07/31/2024 Exercise Vital Sign Answer Date Recorde d On average, how many days pe r week do you engage in moderate to strenuous exercise (like a brisk walk)? 0 days 07/31/2024 On average, how many minutes do you engage in exercise at this level? 0 min 07/31/2024 Hunger Vital Sign Answer Date Recorded Within the past 12 months, y ou worried that your food would run out before you got the money to buy more. Never true 02/07/20 25 Within the past 12 months, t he food you bought just didn't last and you didn't have money to get more. Never true 02/06/2025 PRAPARE - Transportation Answer Date Re corded In the past 12 months, has l ack of transportation kept you from medical appointments or from getting medications? No 01/26 In the past 12 months, has l ack of transportation kept you from meetings, work, or from getting things needed for daily living? No 02/06/2025 Housing Stability Vital Sign Answer Bernardino e Recorded In the last 12 months, was t here a time when you were not able to pay the mortgage or rent on time? No 02/06/2025 In the past 12 months, how m any times have you moved where you were living? 0 02/06/2025 At any time in the past 12 m [facility], were you homeless or living in a penitentiary (including now)? No 02/06/2025 Sex and Gender Information Value Date Recorded Sex Assigned at Male 10/19/2024 3:17 PM [employer] Legal Sex Male 10:54 PM CDT Gender Identity Not on file Sexual Orientation Not on file Last Filed Vital Signs Vital Sign Reading Time Taken Comments Blood Pressure 138/97 04/06/2025 12:14 PM CDT Pulse 97 04/06/2025 12:14 PM CDT Temperature 36.5 C (97.7 F) 04/06/2025 12:14 PM CDT Respiratory Rate 20 04/06/2025 12:14 PM CDT Oxygen Saturation 96% 04/06/2025 12:14 PM CDT Inhaled Oxygen Concentration - - Weight 75.3 kg (166 lb) 04/06/2025 12:14 PM CDT Height 177.8 cm (5' 10) 04/06/2025 12:14 PM CDT Body Mass Index 23.82 04/06/2025 12:14 PM CDT Plan of Treatment Health Maintenance Due Date Last Done Comments Hepatitis C 1963 Zoster Vaccines (1 of 2) 1964 Annual Medicare Wellness Visit 2010 DTaP, Tdap and Td Vaccines (2 - Td or Tdap) 08/09/2019 08/09/2009, 03/28/1999 RSV Immunization or 60+ Years (1 - 1-dose 75+ series) 2020 COVID-19 Vaccine (2 - Pfizer risk series) 05/02/2021 04/11/2021 PHQ-2 (Physician [place]) 09/28/2024 Pneumococcal Vaccine: 50+ Years Completed 07/15/2019, 07/17/2018, 10/21/2017, Additional history exists Meningococcal B Vaccine Aged Out No l onger eligible based on patient's age to complete this topic Meningococcal Vaccine Aged Out No rancho alyse eligible based on patient's age to complete this topic RSV Immunizations Under 20 Months Aged Out No longer eligible based on patient's age to complete this topic Goals Goal Patient Goal Type Associated Problems Recent Progress Patient-Stated? Author Health - patient able to perform ADLs independently Lifestyle Uyen Lopez RN Procedures Procedure Name Priority Date/Time Associated Diagnosis Comments XR CHEST PA+LAT Today 02/07/2025 10:[address] HEAD WO CON TIMED 02/07/2025 9:03 AM CDT BASIC METABOLIC PANEL Routine 02/07/2025 5:28 AM CDT CBC W/DIFF AUTOMATED Routine 02/07/2025 5:28 AM CDT from Last 3 Months Results * XR CHEST PA+LAT (02/07/2025 10:26 AM CDT) Anatomical Region Laterality Modality Chest Radiographic Vaishali ging 02/07/2025 10:4 8 AM CDT Impressions 02/07/2025 11:51 AM CDT IMPRESSION: No acute cardiopulmonary process identified. See text. Ordered By: JAJA NEVAREZ Interpreted By: Sergio Portillo MD, 02/07/2025 10:48 AM Narrative 02/07/2025 11:51 AM CDT [address] [place] [address] Examination: Two-view chest Exam time: 1000 hours. Clinical history: Abnormal breath sounds. History of left upper lobe lung cancer, status post radiation therapy. Comparison: 08/02/2024; CT of the chest, 12/27/2024. Technique: AP and lateral views Findings: The heart remains within normal limits for size. Pulmonary vascularity is within normal limits. Post therapeutic changes in the left perihilar region and upper lobe appear similar to the CT topogram. Minor opacity at the right base, reflecting scarring and subsegmental atelectasis on CT, is likewise similar. Granulomatous scarring is again evident. No acute infiltrates or effusions are identified. The bony thorax is stable. 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 Procedure Note Sergio Portillo MD - 02/07/[address] [place] [address] Examination: Two-view chest Exam time: 1000 hours. Clinical history: Abnormal breath sounds. History of left upper lobe lungcancer, status post radiation therapy. Comparison: 08/02/2024; CT of the chest, 12/27/2024. Technique: AP and lateral views Findings: The heart remains within normal limits for size. Pulmonaryvascularity is within normal limits. Post therapeutic changes in the leftperihilar region and upper lobe appear similar to the CT topogram. Minoropacity at the right base, reflecting scarring and subsegmentalatelectasis on CT, is likewise similar. Granulomatous scarring is againevident. No acute infiltrates or effusions are identified. The bony thoraxis stable. Partially imaged nonunited right proximal humeral fractureagain evident. IMPRESSION: No acute cardiopulmonary process identified. See text. Ordered By: JAJA NEVAREZ Interpreted By: Sergio Portillo MD, 02/07/2025 10:48 AM Jaja Nevarez ANP-BC GENERAL IMAGING Final Res ult * CT HEAD WO CON (02/07/2025 9:03 AM CDT) Anatomical Region Laterality Modality Head Computed Tomogra phy 02/07/2025 9:26 AM CDT Impressions 02/07/2025 9:38 AM CDT IMPRESSION: 1. No acute intracranial process identified. 2. 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 Ordered By: JAJA NEVAREZ Interpreted By: Sergio Portillo MD, 02/07/2025 9:26 AM Narrative 02/07/2025 9:38 AM CDT [address] [place] [address] Examination: CT of the head without contrast. Exam time: 0859 hours. Clinical history: Trauma aftercare. Ground-level fall the previous day. Patient on Eliquis. Comparison: 02/06/2025. Technique: Noncontrast axial scans from skull base to vertex. Sagittal and coronal reconstructions were performed from the data set. A dose lowering technique was used for this procedure, which may include, but is not limited to, dose reduction techniques, automated exposure control, the use of iterative reconstruction and ALARA/Image Gently techniques. Findings: There is prominence of the ventricles, fissures and sulci, greater than anticipated for age, compatible with moderate to marked diffuse cortical atrophy. This is unchanged. No shift of midline or mass effect is noted. Physiologic calcification in the basal ganglia is again noted. There is stable periventricular decreased attenuation, compatible with small vessel disease. No new areas of abnormal x-ray attenuation are identified. In particular, there is no mass, hemorrhage or sign of acute stroke. No extracerebral fluid collections. The skull appears intact. The mastoid air cells and paranasal sinuses appear clear. Procedure Note Sergio Portillo MD - 02/07/[address] [place] [address] Examination: CT of the head without contrast. Exam time: 0859 hours. Clinical history: Trauma aftercare. Ground-level fall the previous day.Patient on Eliquis. Comparison: 02/06/2025. Technique: Noncontrast axial scans from skull base to vertex. Sagittal andcoronal reconstructions were performed from the data set. A dose loweringtechnique was used for this procedure, which may include, but is notlimited to, dose reduction techniques, automated exposure control, the useof iterative reconstruction and ALARA/Image Gently techniques. Findings: There is prominence of the ventricles, fissures and sulci,greater than anticipated for age, compatible with moderate to markeddiffuse cortical atrophy. This is unchanged. No shift of midline or masseffect is noted. Physiologic calcification in the basal ganglia is againnoted. There is stable periventricular decreased attenuation, compatiblewith small vessel disease. No new areas of abnormal x-ray attenuation areidentified. In particular, there is no mass, hemorrhage or sign of acutestroke. No extracerebral fluid collections. The skull appears intact. Themastoid air cells and paranasal sinuses appear clear. IMPRESSION: 1. No acute intracranial process identified. 2. 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 Ordered By: JAJA NEVAREZ Interpreted By: Sergio Portillo MD, 02/07/2025 9:26 AM Jaja Nevarez [facility] Final Res ult * (ABNORMAL) BASIC METABOLIC PANEL (02/07/2025 5:28 AM CDT) SODIUM S/P/B 136 136 - 145 MMOL/L 02/07/2025 5:48 AM CDT [facility] POTASSIUM S/P/B 3.9 3.5 - 5.1 MMOL/L 02/07/2025 5:48 AM CDT [facility] CHLORIDE S/P/B 103 98 - 107 MMOL/L 02/07/2025 5:48 AM CDT [facility] CO2 26.5 21.0 - 32.0 MMOL/L 02/07/2025 5:48 AM CDT [facility] GLUCOSE 87 70 - 99 MG/DL 02/07/2025 5:48 AM CDT [facility] Comment: FASTING GLUCOSE 100 TO 125 MG/DL IS CONSISTENT WITH IMPAIRED FASTING GLUCOSE. FASTING GLUCOSE >125 MG/DL IS CONSISTENT WITH DIABETES. RANDOM GLUCOSE >200 MG/DL WITH HYPERGLYCEMIC SYMPTOMS IS CONSISTENT WITH DIABETES. PER ADA GUIDELINES BUN 14 6 - 24 MG/DL 02/07/2025 5:48 AM CDT [facility] CREATININE S/P/B 1.07 0.70 - 1.30 MG/DL 02/07/2025 5:48 AM CDT [facility] CALCIUM S/P/B 9.3 8.4 - 10.5 MG/DL 02/07/2025 5:48 AM CDT [facility] ANION GAP 6.5 5.0 - 15.0 MMOL/L 02/07/2025 5:48 AM CDT [facility] OSMOLALITY (CALC) 282 MOSM/KG 025 5:48 AM CDT [facility] Comment:REFERENCE RANGE NOT ESTABLISHED GFR ESTIMATE 71(L) >89 ML/MIN/1. 73 M2 02/07/2025 5:48 AM CDT [facility] GFR NOTES GFR REFERENCE S: 02/07/2025 5:48 AM CDT [facility] Comment: THE ESTIMATED GFR IS CALCULATED USING THE 2020 CKD-EPI EQUATION. THE FOLLOWING CATEGORIES FOR GRADING RENAL FUNCTION ARE RECOMMENDED BY THE INTERNATIONAL SOCIETY OF NEPHROLOGY (KDIGO 2012 CLINICAL PRACTICE GUIDELINE). G1,NORMAL OR HIGH: >89 ml/min/1.73 m2 G2,MILDLY DECREASED: 60-89 ml/min/1.73 m2 G3A,MILDLY TO MODERATELY DECREASED: 45-59 ml/min/1.73 m2 G3B,MODERATELY TO SEVERELY DECREASED: 30-44 ml/min/1.73 m2 G4,SEVERELY DECREASED: 15-29 ml/min/1.73 m2 G5,KIDNEY FAILURE: <15 ml/min/1.73 m2 02/07/2025 5:28 AM CDT us Jaja Nevarez [facility] Final Res ult [facility] [address] [place] [address], * (ABNORMAL) CBC W/DIFF AUTOMATED (02/07/2025 5:28 AM CDT) WBC 9.99 4.00 - 10.80 x10'3/uL 02/07/2025 5:38 AM CDT [facility] RBC 4.33(L) 4.50 - 6.10 x10'6/uL 02/07/2025 5:38 AM CDT [facility] HGB 12.0(L) 13.0 - 18.0 G/DL 02/07/2025 5:38 AM CDT [facility] HCT 36.3(L) 37.0 - 52.0 % 02/07/2025 5:38 AM CDT [facility] MCV 83.8 78.0 - 100.0 FL 02/07/2025 5:38 AM CDT [facility] MCH 27.7 27.0 - 31.0 PG 02/07/2025 5:38 AM CDT [facility] MCHC 33.1 33.0 - 36.0 G/DL 02/07/2025 5:38 AM CDT [facility] RDW 15.9(H) 11.5 - 14.5 % 02/07/2025 5:38 AM CDT [facility] PLT 295 150 - 350 x10'3/uL 02/07/2025 5:38 AM CDT [facility] MPV 9.1 7.4 - 10.4 FL 02/07/2025 5:38 AM CDT [facility] CBC COMMENT NORMAL REFERENCE RANGE NOT ESTABLISHED FOR THE PROPORTIONAL LEUKOCYTE DIFFERENTIAL. 02/07/2025 5:38 AM CDT [facility] NEUTROPHILS % 70.9 % 02/07/2025 5:38 AM CDT [facility] LYMPHOCYTES % 13.6 % 02/07/2025 5:38 AM CDT [facility] MONOCYTES % 9.2 % 02/07/2025 5:38 AM CDT [facility] EOSINOPHILS % 4.7 % 02/07/2025 5:38 AM CDT [facility] BASOPHILS % 1.0 % 02/07/2025 5:38 AM CDT [facility] IMMATURE GRANS % 0.6 % 02/08/20 5:38 AM CDT [facility] NRBC % 0.0 % 02/07/2025 5:38 AM CDT [facility] ABS. NEUTROPHILS 7.08 1.60 - 8.30 x10'3/uL 02/07/2025 5:38 AM CDT [facility] ABS. LYMPHOCYTES 1.36 0.80 - 4.70 x10'3/uL 02/07/2025 5:38 AM CDT [facility] ABS. MONOCYTES 0.92 0.00 - 1.50 x10'3/uL 02/07/2025 5:38 AM CDT [facility] ABS. EOSINOPHILS 0.47(H) 0.00 - 0.40 x10'3/uL 02/07/2025 5:38 AM CDT [facility] ABS. BASOPHILS 0.10 0.00 - 0.20 x10'3/uL 02/07/2025 5:38 AM CDT [facility] ABS. IMMATURE GRANULOCYTES 0.06(H) 0.00 - 0.03 x10'3/uL 02/07/2025 5:38 AM CDT [facility] ABS. NUCLEATED RBC'S 0.00 0.00 - 0.01 x10'3/uL 02/07/2025 5:38 AM CDT [facility] 02/07/2025 5:28 AM CDT Jaja Nevarez [facility] Final Res ult [facility] [address] [place] [address], from Last 3 Months Additional Health Concerns Infection Onset Date Last Indicated MRSA Comment:04/19/24 john (ANNETTE) 04/19/2024 04/19/2024 Insurance [facility] Advance Directives * Full Code (Latest Code Status on File) Date Activated Date Inactivated Comments 02/06/2025 3:34 PM 02/07/2025 3:11 PM * Full Code Date Activated Date Inactivated Comments 08/17/2024 4:28 PM 02/06/2025 11:37 AM * Full Code Date Activated Date Inactivated Comments 08/02/2024 4:52 PM 08/15/2024 3:20 PM * Full Code Date Activated Date Inactivated Comments 07/27/2024 4:28 PM 08/02/2024 4:43 PM * Full Code Date Activated Date Inactivated Comments 04/19/2024 9:35 PM 05/01/2024 3:56 PM Care Teams 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
[2025-05-10 09:30] LABS: Hematocrit 38.6 % (37.0-46.0); Hemoglobin 12.7 g/dL (12.4-15.3); Immature Granulocyte Percent A 0.8 % (0.0-0.0); Lymphocytes Absolute Auto 0.84 K/mm3 (1.10-4.50); Mean Corpuscular HGB Conc 32.9 g/dL (32-36); Mean Corpuscular Hemoglobin 29.0 pg (27.0-31.0); Mean Corpuscular Volume 88.1 fL (78.0-102.0); Nucleated Red Blood Cells Absolute Auto 0.00 K/mm3 (0.00-0.00); Nucleated Red Blood Cells Perc 0.0 % (0-0.0); Platelet Count Result 307 K/mm3 (150-420); Red Blood Count 4.38 M/mm3 (4.70-6.10); White Blood Count 12.1 K/mm3 (4.8-10.8)
[2025-05-10 09:43] LABS: Alanine Aminotransferase 15 U/L (6-50); Albumin Level 4.2 g/dL (3.5-5.1); Alkaline Phosphatase 86 U/L (38-126); Anion Gap 7 mmol/L (4-12); Aspartate Amino Transferase 25 U/L (17-59); Bilirubin,Total 0.8 mg/dL (0.2-1.3); Blood Urea Nitrogen 16 mg/dL (9-20); Calcium 9.7 mg/dL (8.4-10.2); Carbon Dioxide 26 mmol/L (22-30); Chloride 104 mmol/L (98-107); Creatine Kinase 39 U/L (55-170); Estimated CRCL calculation 51 ml/min; Estimated Glomerular Filt Rate > 60; Glucose 104 mg/dL (65-110); Lipase 51 U/L (23-300); Osmolality Calculated 285 mOsm/kg (285-295); Potassium 4.1 mmol/L (3.4-5.0); Sodium 137 mmol/L (137-145); Total Protein 7.0 g/dL (6.3-8.2)
--- NOTE | 2025-05-10 09:45 | PC.NURSE ---
Pt resting comfortably on cot in room. Side rails raised, call light within reach.
[2025-05-10 09:52] LABS: NT Pro B Type Natriuretic Pept 289 pg/mL (19.9-100)
[2025-05-10 09:55] LABS: Troponin I < 0.012 ng/mL (0.000-0.034)
[2025-05-10 10:06] LABS: Influenza A QL RT-PCR Negative (Negative); Influenza B QL RT-PCR Negative (Negative); RSV RNA, RT-PCR Negative (Negative); SARS-CoV-2 RNA PCR Negative (Negative)
== END 2025-05-10 10:28 | disposition home or self-care (01) ==
PROVIDERS: Emergency Provider Internal Medicine Critical Care Medicine; PCP Internal Medicine
DX: F41.0 Panic disorder [episodic paroxysmal anxiety] (principal); R06.02 Shortness of breath; I10 Essential (primary) hypertension; J44.9 Chronic obstructive pulmonary disease, unspecified; Z79.899 Other long term (current) drug therapy; Z79.01 Long term (current) use of anticoagulants; Z87.891 Personal history of nicotine dependence; Z20.822 Contact with and (suspected) exposure to COVID-19
CPT/HCPCS: 36415; 71045; 80053; 82550; 83605; 83690; 83880; 84484; 85025; 87637; 93005; 99284

== ENCOUNTER 2025-06-09 14:21 | Outpatient (CLI) | payer MEDICARE, SELFPAY ==
--- NOTE | ~2025-06-09 | XR_ITS ---
EXAMINATION: XR shoulder RT min 2V, 06/09/2025 14:30 CDT HISTORY: Fall x2 mo prior. Right proximal humorous fracture COMPARISON: No comparisons available. Findings: There is a comminuted displaced fracture of the humeral neck with extension into the humeral head. Severe degenerative changes with displaced bony fragments noted. Diffuse soft tissue swelling. Impression: Comminuted displaced fracture detailed above Reviewed, dictated and finalized at location A. Impression: Comminuted displaced fracture detailed above
== END 2025-06-09 14:22 | disposition home or self-care (01) ==
LOC: CHSIMG 14:24
PROVIDERS: PCP Internal Medicine; Visit Provider Internal Medicine
DX: S42.211A Unspecified displaced fracture of surgical neck of right humerus, initial encounter for closed fracture (principal)
CPT/HCPCS: 73030